=== PATIENT | male | born 1980 | race African-American/Black ===

== ENCOUNTER 2017-02-05 19:38 | Emergency (ER) | payer OTHER ==
[~2017-02-05] VITALS: Ht 175.3 cm; Wt 90.9 kg
[~2017-02-05 19:38] MED LIST: ALBU8.5H8 IH; BENZ2AMP4 IJ; HALO100A2 IM; HYDR-971 PO
[2017-02-05 20:03] VITALS: BP 115/72
[2017-02-05] MEDS ORDERED: ACETAMINOPHEN 325 MG TABLET PO ONE (20:15)
[2017-02-05] MEDS ORDERED: CEPHALEXIN 500 MG CAPSULE PO ONE (20:15)
[2017-02-05] MEDS ORDERED: CEPH-264 PO (20:20)
[2017-02-05] MEDS ORDERED: DIPH25CA58 PO (20:20)
[2017-02-05] MEDS ORDERED: NAPR500T PO (20:20)
--- NOTE | 2017-02-05 20:20 | PHYS DOC ---
Past History Past Medical History: Anxiety, Depression Past Surgical History: Other Additional Past Surgical Histo: dental extraction 3 weeks ago Smoking: Cigarettes Alcohol Use: None Drug Use: None Adult General Chief Complaint Chief Complaint: INSECT BITE HPI HPI He is a pleasant otherwise healthy 36-year-old male who while at home was stung by some insect on the right cheek. Since that time has had localized swelling increased redness with tenderness to palpation over the wound area. He denies any numbness and tingling, denies any fevers or chills, denies any facial anesthesia, vision changes, ear pain, or problems swallowing or speaking. The skin is becoming warm and increasingly red and swollen. Denies any prior infections. The swelling is on the opposite side of where his dental extraction done 3 weeks ago. He denies any self-inflicted trauma or injury from someone at home. Review of Systems Review of Systems Constitutional: Denies fever or chills [] Eyes: Denies change in visual acuity, redness, or eye pain [] HENT: Denies nasal congestion or sore throat [] Respiratory: Denies cough or shortness of breath [] Cardiovascular: No additional information not addressed in HPI [] GI: Denies abdominal pain, nausea, vomiting, bloody stools or diarrhea [] : Denies dysuria or hematuria [] Musculoskeletal: Denies back pain or joint pain [] Integument: Planes of localized swelling to the face without rash Neurologic: Denies headache, focal weakness or sensory changes [] Endocrine: Denies polyuria or polydipsia [] Current Medications Current Medications Current Medications Medications (Trade) Dose Ordered Sig/[facility] Start Time Stop Time Status Last Admin Dose Admin Acetaminophen (Tylenol) 650 mg 1X ONCE 02/05/17 20:15 02/05/17 20:16 UNV Cephalexin HCl (Keflex) 500 mg 1X ONCE 02/05/17 20:15 02/05/17 20:16 UNV Allergies Allergies Allergies Coded Allergies Type Severity Reaction Last Updated Verified ciprofloxacin Allergy Intermediate 01/26/16 Yes Physical Exam Physical Exam Constitutional: Well developed, well nourished, no acute distress, non-toxic appearance. [] HENT: Normocephalic, atraumatic, bilateral external ears normal, oropharynx moist, localized swelling to the right cheek inferior to the zygoma demarcated by area of erythema with soft tissue swelling measuring 3 cm x 4 cm. No obvious puncture wound or foreign body located in the cheeks Eyes: PERRLA, EOMI, conjunctiva normal, no discharge. [] Neck: Normal range of motion, no tenderness, supple, no stridor. [] Cardiovascular:Heart rate regular rhythm, no murmur [] Lungs & Thorax: Bilateral breath sounds clear to auscultation [] Skin: Warm, dry, Mall area of erythema on the cheek wall with no vesicles or rash internal buccal mucosa is within normal limits no obvious dental involvement Neurologic: Alert and oriented X 3, normal motor function, normal sensory function, no focal deficits noted. [] Normal Speech nO obvious signs of facial weakness there is obvious signs of facial asymmetry secondary to soft tissue swelling Psychologic: Affect normal, judgement normal, mood normal. [] EKG EKG [] Radiology/Procedures Radiology/Procedures [] Course & Med Decision Making Course & Med Decision Making Pertinent Labs and Imaging studies reviewed. (See chart for details) reviewed nursing notes and vital signs and patient's complaint upon arrival I believe that this is a local envenomation from stinging or biting insect. No foreign bodies noted in the soft tissue. Skin is warm consistent with likely localized history and reaction but given 24 hour window of localized swelling and increased redness we'll prophylactically treat with antibiotics to increase likelihood of resolution of symptoms. Impression: Localized histamine response from insect envenomation possibly early cellulitis Disposition: Follow with PCP in 24-48 hours for localized wound check given precautions to return for increasing swelling fevers greater than 102.2 despite treatment pain in his eye or increased, vision trouble swallowing change in voice. [] Dragon Disclaimer Dragon Disclaimer This chart was dictated in whole or in part using Voice Recognition software in a busy, high-work load, and often noisy Emergency Department environment. It may contain unintended and wholly unrecognized errors or omissions. Departure Departure: Impression: Primary Impression: Facial cellulitis Additional Impression: Insect bite Disposition: 01 HOME, SELF-CARE Condition: IMPROVED Referrals: [facility] (PCP) Patient Instructions: Cellulitis, Insect Bite Additional Instructions: This return for any new or increasing symptoms, redness, swelling, fever greater than 102.2 despite treatment or if you have any questions or concerns. I would advise follow-up with her primary care doctor in 24-48 hours if symptoms are not improved despite antibiotic treatment. Please keep and take your entire course of antibiotics to prevent any secondary infection. Scripts Diphenhydramine Hcl (BENADRYL) 25 Mg Capsule 25 MG PO QID for 7 Days, #28 CAP Prov: JOHNNY MCNAMARA MD 02/05/17 Cephalexin (KEFLEX) 500 Mg Capsule 500 MG PO QID for 10 Days, #40 CAP Prov: JOHNNY MCNAMARA MD 02/05/17 Naproxen (NAPROSYN) 500 Mg Tablet 1 TAB PO BID, #20 TAB 1 Refill Prov: JOHNNY MCNAMARA MD 02/05/17 Problem Qualifiers JOHNNY MCNAMARA MD February 05, 2017 20:20
== END 2017-02-05 20:27 | disposition home or self-care (01) ==
LOC: ER 19:38
DX: L03.211 Cellulitis of face (principal); S00.86XA Insect bite (nonvenomous) of other part of head, initial encounter; F17.210 Nicotine dependence, cigarettes, uncomplicated; Z88.1 Allergy status to other antibiotic agents; W57.XXXA Bitten or stung by nonvenomous insect and other nonvenomous arthropods, initial encounter; Y93.89 Activity, other specified; Y99.8 Other external cause status; Y92.89 Other specified places as the place of occurrence of the external cause
CPT/HCPCS: 99283

== ENCOUNTER 2017-03-02 04:39 | Emergency (ER) | payer OTHER ==
[~2017-03-02 04:39] MED LIST changes: +CEPH-264 PO; +DIPH25CA58 PO; +NAPR500T PO
[2017-03-02] MEDS: ONDANSETRON PF 4 MG/2 ML VIAL. IV ONE (05:03)
[2017-03-02] MEDS: fentaNYL PF 100 MCG/2 ML VIAL IV ONE (05:03)
[2017-03-02 05:12] LABS: BASO # 0.1 x10^3/uL (0.0-0.2); BASO % 1 % (0-3); EOS # 0.2 x10^3/uL (0.0-0.7); EOS % 3 % (0-3); HEMATOCRIT 41.2 % (39.0-53.0); HEMOGLOBIN 13.5 g/dL (13.0-17.5); LYMPH # 2.6 x10^3/uL (1.0-4.8); LYMPH % 42 % (24-48); MEAN CORPUSCULAR HEMOGLOBIN 28 pg (25-35); MEAN CORPUSCULAR HGB CONC 33 g/dL (31-37); MEAN CORPUSCULAR VOLUME 85 fL (79-100); MONO # 0.7 x10^3/uL (0.0-1.1); MONO % 11 % (0-9); NEUT # 2.6 x10^3uL (1.8-7.7); NEUT % 43 % (31-73); PLATELET COUNT 178 x10^3/uL (140-400); RED BLOOD COUNT 4.83 x10^6/uL (4.30-5.70); WHITE BLOOD COUNT 6.2 x10^3/uL (4.0-11.0)
[2017-03-02 05:22] LABS: CALCIUM 8.4 mg/dL (8.5-10.1); CREATININE 1.3 mg/dL (0.7-1.3); GFR 74.8; POTASSIUM 3.4 mmol/L (3.5-5.1)
[2017-03-02] MEDS ORDERED: KETOROLAC 30 MG/ML VIAL. IV ONE (05:30)
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
[2017-03-02] MEDS: LORazepam 2 MG/ML VIAL IV ONE (05:34)
[2017-03-02 05:46] LABS: BARBITURATES NEG (NEG); BENZODIAZEPINES NEG (NEG); CANNABINOIDS POS (NEG); COCAINE NEG (NEG); METHADONE NEG (NEG); OPIATES NEG (NEG); PHENCYCLIDINE NEG (NEG)
--- NOTE | 2017-03-02 05:47 | EKG ---
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
[2017-03-02 05:51] LABS: AMPHETAMINE/METHAMPHETAMINE NEG (NEG)
--- NOTE | 2017-03-02 07:11 | ACF ---
Admission Criteria Forms CHEST PAIN Clinical Indications for Admission to Inpatient Care (Place 'X' for any and all applicable criteria): Admission is indicated for chest pain and ANY ONE of the following(1)(2)(3)(4)(5 ): [ ]I. Angina with acute coronary syndrome (Also use Myocardial Infarction or Angina guideline) [ ]II. Hemodynamic instability [ ]III. Angina needing acute intervention as indicated by ALL of the following( 11)(12): [ ]a) Unstable angina is present as indicated by angina that is ANY ONE of the following: [ ]i) New onset [ ]ii) Nocturnal [ ]iii) Prolonged at rest [ ]iv) Progressive [ ]b) Angina warrants acute intervention as indicated by ANY ONE of the following: [ ]i) Recurrent angina (e.g, not responding as previously to treatment) [ ]ii) Angina at rest or with low-level activities despite initial medical therapy [ ]iii) New or presumably new ST-segment depression on ECG [ ]iv) Signs or symptoms of heart failure (eg, dyspnea, pulmonary edema) [ ]v) New or worsening mitral regurgitation [ ]vi) Hemodynamic instability [ ]vii) Dangerous arrhythmia (eg, sustained ventricular tachycardia) [ ]viii) History of percutaneous coronary intervention within 6 months [ ]ix) History of coronary artery bypass graft surgery [ ]x) AURA risk score of 2 or greater[A] [ ]xi) History of Diabetes(14) [ ]xii) High-risk cardiac ischemia findings on noninvasive testing (e.g, echocardiogram, treadmill testing, nuclear scan) [ ]xiii) Chronic renal insufficiency (ie, estimated GFR less than 60 mL/min/1.732m) [ ]xiv) Left ventricular ejection fraction less than 40% [ ]IV. Evidence of [place] (eg, cardiac biomarkers positive, ST-segment elevation on ECG) also use Myocardial Infarction Criteria Form. [ ]V. Pulmonary edema [ ]. Respiratory distress [ ]VII. Chest pain indicative of serious diagnosis other than coronary artery disease (eg, aortic dissection) [ ]VIII. Contraindications and/or Inappropriate clinical situations for Observational Care in patients with Chest Pain, when ANY ONE of the following is required: [ ]a) Patient with risk factor for pulmonary embolism, acute coronary syndrome and myocardial infarction (18) [ ]b) Patient with Pulmonary embolism require an average LOS of 4.3 days, therefore emergency department observation management is inappropriate 18,23 [ ]c) Painful condition/s in the elderly, have the highest rate of recidivism after emergency department observation management (10.8%) 20,21,22 [ ]d) Elevated cardiac biomarker requires intensive and exhaustive care (19) [ ]IX. General contraindications and/or Inappropriate clinical situations for Observational Care in patients with Chest Pain, when ANY ONE of the following is required: [ ]a) Prediction of prolongation of LOS based on ANY ONE of the following may be considered as a contraindication for observational care 2, 3, 4, 5, 6, 7, 8, 9, 10, 11 [ ]i) Age > 65 yrs. [ ]ii) Patient arriving by ambulance [ ]iii) Patient with high acuity [ ]iv) Patient requiring vital sign monitoring [ ]v) Patient on IV medication [ ]b) Systolic blood pressures 180mmHg 3,12 [ ]c) Patient with altered mental status including delirium and other alteration of consciousness, (3) [ ]d) Patient whose discharge disposition will be to a usp home or rehabilitation home should not be managed in Emergency Department Observation Unit. CMS rule requires 3 days hospital stay before such placement. 3,13 [ ]e) Patient with failure to thrive due to broad array of etiologies 3,16,17 [ ]f) Inability to ambulate 3,14 Extended stay beyond goal length of stay may be needed for (1)(28): [ ]a) Specific condition diagnosed after evaluation (eg, pulmonary embolism, aortic dissection) [ ]b) Unstable angina [ ]c) Continued suspicion of acute coronary syndrome with inability to complete needed cardiac evaluation (eg, patient clinically unable to undergo stress testing) [ ]d) Myocardial infarction (Contents from ANGINA and CHEST PAIN clinical indications for admission to inpatient care have been integrated in this form) The original [employer] content created by [employer] has been revised. The portions of the content which have been revised are identified through the use of italic text or in bold, and [employer] has neither reviewed nor approved the modified material. All other unmodified content is copyright [employer]. Please see references footnoted in the original [employer] edition 2016 VANGIE LEVINE Mar 02, 2017 07:11
--- NOTE | 2017-03-02 07:16 | RAD ---
Portable chest, 03/02/2017: History: Chest pain Comparison is made to a study from 08/13/2016. The heart size and pulmonary vascularity are normal. No pulmonary infiltrates are seen. There is no evidence of pleural fluid. IMPRESSION: No acute cardiopulmonary abnormality is detected.
--- NOTE | 2017-03-02 07:17 | RAD ---
Right shoulder, 2 views, 03/02/2017: History: Shoulder and chest pain No fracture or dislocation is identified. The periarticular soft tissues are unremarkable. IMPRESSION: No acute right shoulder abnormality is detected.
[2017-03-02 08:15] VITALS: BP 116/63
== END 2017-03-02 08:28 | disposition home or self-care (01) ==
LOC: ER 04:39
DX: R07.89 Other chest pain (principal); M25.511 Pain in right shoulder; F41.1 Generalized anxiety disorder; J45.909 Unspecified asthma, uncomplicated; F17.210 Nicotine dependence, cigarettes, uncomplicated; Z88.1 Allergy status to other antibiotic agents
CPT/HCPCS: 36415; 71010; 73030; 80048; 80305; 80320; 82550; 84484; 85027; 93005; 96374; 96375; 99285; J2060; J2405; J3010; G0480; G0481

== ENCOUNTER 2017-04-16 19:24 | Emergency (ER) | payer OTHER ==
[~2017-04-16] VITALS: Ht 175.3 cm; Wt 90.9 kg
[2017-04-16] MEDS ORDERED: diphenhydrAMINE HCL 25 MG CAPSULE PO ONE (19:45)
--- NOTE | 2017-04-16 19:51 | PHYS DOC ---
Past History Past Medical History: Anxiety, Asthma, Bipolar, Other Past Surgical History: Other Additional Past Surgical Histo: dental extraction 3 weeks ago Smoking: Cigarettes Alcohol Use: None Drug Use: Marijuana Adult General Chief Complaint Chief Complaint: INSECT BITE HPI HPI Patient is a 36 year old MALE who presents with complaint of spider bite. He states he was bitten "just 10 min before I got here." He was bitten to both of his thumbs. He took a picture of the spider to show me. No nausea or vomiting; no swelling of the area. No visual change or headache. No abdominal cramping. No rash or difficulty breathing. Review of Systems Review of Systems Respiratory: Denies cough or shortness of breath GI: Denies abdominal pain, nausea, vomiting, bloody stools or diarrhea Musculoskeletal: Denies back pain or joint pain Integument: Denies rash or skin lesions Neurologic: Denies headache, focal weakness or sensory changes Allergies Allergies Allergies Coded Allergies Type Severity Reaction Last Updated Verified ciprofloxacin Allergy Intermediate 01/26/16 Yes Physical Exam Physical Exam Constitutional: Well developed, well nourished, no acute distress, non-toxic appearance. Skin: Warm, dry, no erythema, no rash. Extremities: No tenderness, no cyanosis, no clubbing, ROM intact, no edema. NO WOUNDS VISUALIZED ON EITHER THUMBS. No swelling; NVI distally. Neurologic: Alert and oriented X 3, normal motor function, normal sensory function, no focal deficits noted. Course & Med Decision Making Course & Med Decision Making No evidence of systemic findings. I cannot even visualize the bite wounds on the thumbs. He did request a not for work tomorrow. Patient given benadryl here. Dragon Disclaimer Dragon Disclaimer This chart was dictated in whole or in part using Voice Recognition software in a busy, high-work load, and often noisy Emergency Department environment. It may contain unintended and wholly unrecognized errors or omissions. Departure Departure: Impression: Primary Impression: Spider bite Disposition: 01 HOME, SELF-CARE Condition: GOOD Referrals: [facility] (PCP) Patient Instructions: Spider Bite Additional Instructions: Take benadryl every 4-6 hours for the next 24 hours. MARITZA ZACARIAS MD Apr 16, 2017 19:51
[2017-04-16 19:57] VITALS: BP 122/78
== END 2017-04-16 19:56 | disposition home or self-care (01) ==
LOC: ER 19:24
DX: T63.301A Toxic effect of unspecified spider venom, accidental (unintentional), initial encounter (principal); F41.9 Anxiety disorder, unspecified; F17.210 Nicotine dependence, cigarettes, uncomplicated; F12.10 Cannabis abuse, uncomplicated; Z88.1 Allergy status to other antibiotic agents; Y92.89 Other specified places as the place of occurrence of the external cause
CPT/HCPCS: 99282; Q0163

== ENCOUNTER 2017-05-05 17:56 | Emergency (ER) | payer OTHER ==
[~2017-05-05] VITALS: Ht 175.3 cm; Wt 82.1 kg
[2017-05-05 18:11] VITALS: BP 126/84
[2017-05-05] MEDS ORDERED: HYDROcodone/APAP 10/325 1 TAB TABLET ONE (18:32)
[2017-05-05] MEDS ORDERED: ONDANSETRON ODT 4 MG TAB.RAPDIS ONE (18:33)
[2017-05-05] MEDS ORDERED: ONDANSETRON ODT 4 MG TAB.RAPDIS PO ONE (18:45)
[2017-05-05] MEDS ORDERED: HYDROcodone/APAP 10/325 1 TAB TABLET PO ONE (18:45)
[2017-05-05 19:05] LABS: BACTERIA,URINE 0 /HPF (0-FEW); BILIRUBIN,URINE NEG (NEG); CLARITY,URINE CLEAR; COLOR,URINE YELLOW; GLUCOSE,URINE NEG (NEG); NITRITE,URINE NEG (NEG); RBC,URINE 0 /HPF (0-2); SQUAMOUS EPITHELIAL CELL,UR OCC /LPF; UROBILINOGEN,URINE 1 mg/dL (0.2 mg/dL); WBC,URINE OCC /HPF (0-4)
--- NOTE | 2017-05-05 19:18 | PHYS DOC ---
General Chief Complaint: BACK PAIN OR INJURY Stated Complaint: FALL Time Seen by MD: 18:08 Source: patient Exam Limitations: no limitations Problems: History of Present Illness Initial Comments Pt is 36/M to ED c/o fall injury. 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 He says he was standing approximately 6 feet off the ground when the support under his right foot gave way. He says he fell backwards landing "like a taco" wedged in between the fence and a akins. He denies head trauma/LOC/BUSTOS/neck pain. No cuts/ bruises/abrasions despite reportedly falling into a akins. Pt only complaint is right flank/rib pain and complaints of skin tingling or numbness overlying his right thorax. Denies back pain, focal weakness or neurodeficit, bowel/bladder sx, saddle anesthesia. Pt says he took OTC motrin and that he only came to ED because SO wanted him checked out. No new/progressive sx since the fall, no cp/sob/cough/n/v. ED VS normal Occurred: this afternoon Severity: mild Injuries/Pain Location: back Context: other Loss of Consciousness: no loss of consciousness Modifying Factors: worse with jarring, worse with movement, improves with rest Associated Symptoms: other Allergies: Coded Allergies: ciprofloxacin (Verified Allergy, Intermediate, 01/26/16) Hives Past Medical History Medical History: other (asthma, bipolar disorder, anxiety) Surgical History: noncontributory Social History Smoker: cigarettes Alcohol: none Drugs: marijuana Review of Systems Constitutional: denies chills, denies diaphoresis, denies fever, denies malaise Eyes: denies blurred vision, denies decreased acuity, denies inflammation, denies pain, denies photophobia Ears, Nose, Mouth, Throat: denies ear pain, denies ear discharge, denies nose discharge, denies epistaxis, denies mouth pain, denies mouth swelling, denies throat pain Respiratory: see HPI, denies cough, denies shortness of breath, denies wheezing Cardiovascular: denies chest pain, denies palpitations, denies syncope Gastrointestinal: denies diarrhea, denies nausea, denies vomiting Musculoskeletal: see HPI, denies back pain, denies joint pain, denies joint swelling, denies neck pain Psychiatric/Neurological: see HPI, denies headache Physical Exam General Appearance: WD/WN, no apparent distress Head: no evidence of injury (NCAT, neg marinelli/raccoon eyes, no face/scalp TTP/ swell/ecchy or other s/s trauma) Eyes: bilateral eye normal inspection, bilateral eye PERRL, bilateral eye EOMI Ears, Nose, Mouth, Throat: hearing grossly normal, no evidence of ENT injury, no dental injury (no ear/nose discharge no fluid behind TMs b/l) Neck: non-tender, full range of motion Cardiovascular/Respiratory: normal peripheral pulses, normal breath sounds, no respiratory distress Gastrointestinal: non tender, soft Back: no CVA tenderness, no vertebral tenderness Extremities: normal range of motion, non-tender 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 I discussed tx plan, pt expressed agreement/ understanding. Advised to stop smoking. No evidence of head injury noted. Departure Time of Disposition: 19:15 Disposition: 01 HOME, SELF-CARE Diagnosis: Fall, Thoracolumbar strain, head injury Condition: GOOD Patient Instructions: Concussion and Brain Injury, Mpac-vs-Ehxs, Mid-Back Strain with Rehab-SportsMed Additional Instructions: No exercise or strenuous activity until cleared by doctor. RICE, see handout. OTC tylenol as needed. Rx: norco 5mg #10, flexeril Follow up with a doctor in 2-3 days for recheck and further activity restriction modifications. Stop smoking, seek medical assistance if necessary. Return to ED with new or changing symptoms. MAGNOLIA MAN DO May 05, 2017 19:18
[2017-05-05] MEDS ORDERED: HYDR-971 PO (19:20)
[2017-05-05] MEDS ORDERED: CYCL-331 PO (19:20)
--- NOTE | 2017-05-06 08:27 | RAD ---
CHEST PA LATERAL History:Fall, right-sided tenderness Comparison: 03/02/2017 Findings:3 views of the chest are submitted. There is no infiltrate, pleural fluid, pneumothorax. Heart size is within normal limits. No displaced right rib fracture is identified by this exam. Impression: 1.No acute abnormality is identified.
== END 2017-05-05 19:33 | disposition home or self-care (01) ==
LOC: ER 17:56
DX: S29.012A Strain of muscle and tendon of back wall of thorax, initial encounter (principal); S09.90XA Unspecified injury of head, initial encounter; J45.909 Unspecified asthma, uncomplicated; F17.210 Nicotine dependence, cigarettes, uncomplicated; Z88.1 Allergy status to other antibiotic agents; W17.89XA Other fall from one level to another, initial encounter; Y93.H2 Activity, gardening and landscaping; Y99.8 Other external cause status; Y92.89 Other specified places as the place of occurrence of the external cause
CPT/HCPCS: 71020; 81001; 99285; Q0162

== ENCOUNTER 2017-05-11 15:49 | Emergency (ER) | payer OTHER ==
[~2017-05-11] VITALS: Ht 175.3 cm; Wt 81.6 kg
[~2017-05-11 15:49] MED LIST changes: +CYCL-331 PO
[2017-05-11 16:28] LABS: BASO # 0.1 x10^3/uL (0.0-0.2); BASO % 1 % (0-3); EOS # 0.1 x10^3/uL (0.0-0.7); EOS % 2 % (0-3); HEMATOCRIT 41.7 % (39.0-53.0); HEMOGLOBIN 13.9 g/dL (13.0-17.5); LYMPH # 1.3 x10^3/uL (1.0-4.8); LYMPH % 26 % (24-48); MEAN CORPUSCULAR HEMOGLOBIN 28 pg (25-35); MEAN CORPUSCULAR HGB CONC 33 g/dL (31-37); MEAN CORPUSCULAR VOLUME 84 fL (79-100); MONO # 0.6 x10^3/uL (0.0-1.1); MONO % 12 % (0-9); NEUT % 59 % (31-73); PLATELET COUNT 162 x10^3/uL (140-400); RED BLOOD COUNT 4.95 x10^6/uL (4.30-5.70); RED CELL DISTRIBUTION WIDTH 13.3 % (11.5-14.5); WHITE BLOOD COUNT 5.2 x10^3/uL (4.0-11.0)
[2017-05-11 16:40] LABS: ACETAMIN < 2.0 mcg/mL (10-30); ALBUMIN 3.9 g/dL (3.4-5.0); ALBUMIN/GLOBULIN RATIO 1.1 (1.0-1.7); CALCIUM 9.2 mg/dL (8.5-10.1); CREATININE 1.5 mg/dL (0.7-1.3); ETHANOL < 10 mg/dL (0-10); GFR 63.4; POTASSIUM 3.5 mmol/L (3.5-5.1); TOTAL BILIRUBIN 0.4 mg/dL (0.2-1.0); TOTAL PROTEIN 7.3 g/dL (6.4-8.2)
[2017-05-11 17:35] LABS: AMPHETAMINE/METHAMPHETAMINE NEG (NEG); BARBITURATES NEG (NEG); BENZODIAZEPINES NEG (NEG); CANNABINOIDS POS (NEG); COCAINE NEG (NEG); METHADONE NEG (NEG); OPIATES POS (NEG); PHENCYCLIDINE NEG (NEG)
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
[2017-05-11 22:45] VITALS: BP 122/84
--- NOTE | 2017-05-12 07:01 | EKG ---
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
== END 2017-05-11 22:46 ==
LOC: ER 15:49 → EEVIPCON 15:49 → ER 22:46
DX: F39 Unspecified mood [affective] disorder (principal); T14.91 Suicide attempt; F17.210 Nicotine dependence, cigarettes, uncomplicated; F12.10 Cannabis abuse, uncomplicated; Z88.1 Allergy status to other antibiotic agents; X71.3XXA Intentional self-harm by drowning and submersion in natural water, initial encounter; Y93.89 Activity, other specified; Y99.8 Other external cause status; Y92.89 Other specified places as the place of occurrence of the external cause
CPT/HCPCS: 36415; 80053; 80307; 85025; 93005; 99285; G0480; G0479

== ENCOUNTER 2017-06-05 13:18 | Observation (INO) | payer OTHER ==
[~2017-06-05] VITALS: Ht 175.3 cm; Wt 83.1 kg
--- NOTE | 2017-06-05 13:19 | PHYS DOC ---
Past History Past Medical History: No Pertinent History Past Surgical History: No Surgical History Additional Past Surgical Histo: dental extraction 3 weeks ago Smoking: Cigarettes Alcohol Use: None Drug Use: Marijuana Adult General Chief Complaint Chief Complaint: left lower chest pain HPI HPI Patient is a 36 year old male who presents with left lower chest/left upper abdominal pain. She started last night became severe and made him cry. He states sometimes burping makes his pain better. He denies any shortness of breath, nausea vomiting. He denies anything making the pain worse. He states it does get worse at times but has not gone away since last night. He states his been 2 days since his last bowel movement which is not normal for him he usually has a BM every day. He denies any past surgical history and his abdomen. He does smoke marijuana occasionally. He denies any illicit drug use. Review of Systems Review of Systems Constitutional: Denies fever or chills [] Eyes: Denies change in visual acuity, redness, or eye pain [] HENT: Denies nasal congestion or sore throat [] Respiratory: Denies cough or shortness of breath [] Cardiovascular: No additional information not addressed in HPI [] GI: Denies abdominal pain, nausea, vomiting, bloody stools or diarrhea [] : Denies dysuria or hematuria [] Musculoskeletal: Denies back pain or joint pain [] Integument: Denies rash or skin lesions [] Neurologic: Denies headache, focal weakness or sensory changes [] Endocrine: Denies polyuria or polydipsia [] Allergies Allergies Allergies Coded Allergies Type Severity Reaction Last Updated Verified ciprofloxacin Allergy Intermediate 01/26/16 Yes Physical Exam Physical Exam Constitutional: Well developed, well nourished, no acute distress, non-toxic appearance. [] HENT: Normocephalic, atraumatic, bilateral external ears normal, oropharynx moist, no oral exudates, nose normal. [] Eyes: PERRLA, EOMI, conjunctiva normal, no discharge. [] Neck: Normal range of motion, no tenderness, supple, no stridor. [] Cardiovascular:Heart rate regular rhythm, no murmur [] Lungs & Thorax: Bilateral breath sounds clear to auscultation, tender palpation of the left lower chest wall. Abdomen: Bowel sounds hyperactive, soft, tender palpation in the left upper quadrant without any rebound or guarding, no masses, no pulsatile masses. [] Skin: Warm, dry, no erythema, no rash. [] Back: No tenderness, no CVA tenderness. [] Extremities: No tenderness, no cyanosis, no clubbing, ROM intact, no edema. [] Neurologic: Alert and oriented X 3, normal motor function, normal sensory function, no focal deficits noted. [] Psychologic: Affect normal, judgement normal, mood normal. [] EKG EKG EKG shows sinus rhythm with rate of [address] elevations, early re- pole noted in V2 V3, LVH noted, T-wave inversions in lead 3,, QTC 420s all seconds, normal axis, as interpreted by me. EKG similar to one performed on May 11, 2017 except for new T-wave inversions in aVF Radiology/Procedures Radiology/Procedures [address] [address] IMAGING REPORT Signed PATIENT: NASIR DOS SANTOS ACCOUNT: [id number] : 1980 LOCATION: ER AGE: 36 SEX: M EXAM STATUS: REG ER ORD. PHYSICIAN: THONY DEVINE MD REASON: abd pain PROCEDURE: ACUTE ABDOMEN SERIES EXAM: Two view abdomen with one view chest HISTORY: Abdominal pain. COMPARISON: 05/05/2017. FINDINGS: A frontal view of the chest and supine/upright views of the abdomen are obtained. There are no confluent infiltrates. There is no pneumothorax or pleural effusion. The heart is not enlarged. There is no pneumoperitoneum. There are no distended small bowel loops or significant air-fluid levels. There is gas distally. IMPRESSION: 1. No confluent infiltrates. 2. No evidence of obstruction. DICTATED AND SIGNED BY: ALEC LI MD DATE: 06/05/17 6922 CC: THONY DEVINE MD; [facility] ~ Impressions: Chest pain Tobacco abuse PTSD Course & Med Decision Making Course & Med Decision Making Pertinent Labs and Imaging studies reviewed. (See chart for details) He has new T-wave inversions in lead 3 on his EKG versus an EKG in May 11, 2017. First troponin and labs do not show any acute abnormality's. We'll admit to the hospitalist with cardiology consultation. We'll give aspirin and obtain CT scan abdomen pelvis to look for additional pathology. He is agreeable plans in stable condition this time. I did speak with Lakia with cardiology regarding consultation. Dragon Disclaimer Dragon Disclaimer This chart was dictated in whole or in part using Voice Recognition software in a busy, high-work load, and often noisy Emergency Department environment. It may contain unintended and wholly unrecognized errors or omissions. Departure Departure: Impression: Primary Impression: Chest pain Disposition: ADMITTED INPATIENT Admitting Physician: Regina Reddy Condition: STABLE Referrals: [facility] (PCP) Problem Qualifiers Primary Impression: Chest pain Chest pain type: unspecified Qualified Codes: R07.9 - Chest pain, unspecified THONY DEVINE MD Jun 05, 2017 13:19
[2017-06-05] MEDS ORDERED: IV NORMAL SALINE 1,000ML 1,000 ML IV SCH (13:45)
[2017-06-05 14:24] LABS: BASO # 0.1 x10^3/uL (0.0-0.2); BASO % 1 % (0-3); EOS # 0.1 x10^3/uL (0.0-0.7); EOS % 3 % (0-3); HEMATOCRIT 42.2 % (39.0-53.0); HEMOGLOBIN 14.1 g/dL (13.0-17.5); LYMPH # 1.3 x10^3/uL (1.0-4.8); LYMPH % 29 % (24-48); MEAN CORPUSCULAR HEMOGLOBIN 28 pg (25-35); MEAN CORPUSCULAR HGB CONC 34 g/dL (31-37); MEAN CORPUSCULAR VOLUME 84 fL (79-100); MONO # 0.5 x10^3/uL (0.0-1.1); MONO % 11 % (0-9); NEUT # 2.6 x10^3uL (1.8-7.7); NEUT % 57 % (31-73); PLATELET COUNT 206 x10^3/uL (140-400); RED BLOOD COUNT 5.02 x10^6/uL (4.30-5.70); RED CELL DISTRIBUTION WIDTH 13.7 % (11.5-14.5); WHITE BLOOD COUNT 4.5 x10^3/uL (4.0-11.0)
[2017-06-05 14:31] LABS: ALBUMIN 3.9 g/dL (3.4-5.0); ALK PHOS 93 U/L (46-116); ALT (SGPT) 19 U/L (16-63); ANION GAP 8 (6-14); AST (SGOT) 12 U/L (15-37); BLOOD UREA NITROGEN 14 mg/dL (8-26); CALCIUM 8.9 mg/dL (8.5-10.1); CARBON DIOXIDE 27 mmol/L (21-32); CHLORIDE 107 mmol/L (98-107); CREATINE KINASE 157 U/L (39-308); CREATININE 1.1 mg/dL (0.7-1.3); DIRECT BILIRUBIN 0.1 mg/dL (0.0-0.2); GFR 90.6; GLUCOSE 131 mg/dL (70-99); LIPASE 180 U/L (73-393); MAGNESIUM 1.8 mg/dL (1.8-2.4); POTASSIUM 3.9 mmol/L (3.5-5.1); SODIUM 142 mmol/L (136-145); TOTAL BILIRUBIN 0.4 mg/dL (0.2-1.0); TOTAL PROTEIN 7.2 g/dL (6.4-8.2)
--- NOTE | 2017-06-05 14:49 | RAD ---
EXAM: Two view abdomen with one view chest HISTORY: Abdominal pain. COMPARISON: 05/05/2017. FINDINGS: A frontal view of the chest and supine/upright views of the abdomen are obtained. There are no confluent infiltrates. There is no pneumothorax or pleural effusion. The heart is not enlarged. There is no pneumoperitoneum. There are no distended small bowel loops or significant air-fluid levels. There is gas distally. IMPRESSION: 1. No confluent infiltrates. 2. No evidence of obstruction.
[2017-06-05 14:55] LABS: AMPHETAMINE/METHAMPHETAMINE NEG (NEG); BARBITURATES NEG (NEG); BENZODIAZEPINES NEG (NEG); CANNABINOIDS POS (NEG); COCAINE NEG (NEG); METHADONE NEG (NEG); OPIATES NEG (NEG); PHENCYCLIDINE NEG (NEG)
[2017-06-05 15:05] LABS: COLOR,URINE YELLOW
[2017-06-05 15:06] LABS: BACTERIA,URINE 0 /HPF (0-FEW); BILIRUBIN,URINE NEG (NEG); CLARITY,URINE CLEAR; GLUCOSE,URINE NEG (NEG); NITRITE,URINE NEG (NEG); SQUAMOUS EPITHELIAL CELL,UR MANY /LPF; UROBILINOGEN,URINE 1 mg/dL (0.2 mg/dL)
[2017-06-05] MEDS ORDERED: NITROGLYCERIN SUBLINGUAL 0.4 MG BOTTLE OF 25. SL PRN (15:15)
[2017-06-05] MEDS ORDERED: MORPHINE SULFATE 2 MG/ML DISP.SYRIN. IV PRN (15:15)
[2017-06-05] MEDS ORDERED: ONDANSETRON PF 4 MG/2 ML VIAL. IV PRN (15:15)
[2017-06-05] MEDS ORDERED: ASPIRIN 325 MG TABLET PO ONE (15:30)
[2017-06-05] MEDS ORDERED: IOHEXOL 300 MG/ML 75 ML VIAL. IV ONE (15:45)
--- NOTE | 2017-06-05 16:17 | RAD ---
EXAM: CT abdomen/pelvis with contrast. HISTORY: Left upper quadrant pain. TECHNIQUE: Computed tomography of the abdomen and pelvis was performed after the intravenous administration of 75 mL Omnipaque 300. COMPARISON: None. FINDINGS: Lung windows through the visualized portions of the bases reveal mild atelectasis. Bone windows reveal no suspicious lesions. The liver, gallbladder, spleen, pancreas, adrenal glands and kidneys are unremarkable. There are no pathologically enlarged lymph nodes. There is no obstruction. The appendix is not inflamed. No inflammatory changes are identified elsewhere. IMPRESSION: 1. No cause for acute pain is identified. *One or more of the following individualized dose reduction techniques were utilized for this examination: 1. Automated exposure control. 2. Adjustment of the mA and/or kV according to patient size. 3. Use of iterative reconstruction technique.
--- NOTE | 2017-06-05 16:52 | NUR ---
NSG NOTE; [facility] CARDIOLOGY CONSULT CALLED TO OFFICE AT [phone]. EDD ANDREWS AND DR MACK HERE TO SEE PT
[2017-06-05 16:55] VITALS: BP 143/82
--- NOTE | 2017-06-05 17:00 | NUR ---
Admission: Received report from SOULEYMANE Alfaro in ED. Patient assisted to room via michele accompanied by EMS and RN. Oriented to room. Vitals assessed and stable. Patient reviewed current symptoms and past medical history. Reviewed orders and plan of care. Patient verbalized understanding. Telemetry applied. Call light with in reach. Will continue to monitor.
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
[2017-06-05] MEDS ORDERED: FLUO10CA13 PO (18:40)
[2017-06-05] MEDS ORDERED: QUET25TA PO (18:41)
[2017-06-05] MEDS ORDERED: PRAZ1CAP2 PO (18:42)
--- NOTE | 2017-06-05 19:00 | NUR ---
Nursing/AMA: Patient walked passed nursing station and stated "im leaving." SOULEYMANE Estrella walked out with patient. Security pagedAndres responded. Patient told SOULEYMANE Estrella that he removed his IV. IV seem in patients room, catheter tip in-tact. All belongings with patient.
--- NOTE | 2017-06-05 19:05 | NUR ---
Pt walked out of the hospital and this nurse followed him. Pt seemed upset and was yelling back at this nurse. This nurse asked him if he was coming back and he states, "NO! I need to have words with my father in law!" This nurse asked if he had his IV out and he yells back, "I ripped it out!" He then placed his head phones on and he was walking down the hill. Security was notifed of pt leaving AMA. This nurse checked his room and his IV was placed in the trash.
--- NOTE | 2017-06-05 19:22 | NUR ---
Dr. Reddy notified that patient left AMA
[2017-06-05] MEDS ORDERED: FLU VACC QS2017-18 (36MOS+)/PF 0.5 ML SYRINGE. VAX IM ONE (21:00)
--- NOTE | 2017-06-06 11:27 | EKG ---
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
--- NOTE | 2017-06-07 12:51 | EKG ---
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
== END 2017-06-05 19:00 | disposition left against medical advice (07) ==
LOC: ER 13:18 → INTOOBSV 15:19 → 1 SOUTH 15:19
PROVIDERS: ADMIT Internal Medicine; ATTEND Internal Medicine
DX: R07.89 Other chest pain (principal); F17.210 Nicotine dependence, cigarettes, uncomplicated; Z82.3 Family history of stroke; Z83.3 Family history of diabetes mellitus
CPT/HCPCS: 36415; 74022; 74177; 80048; 80076; 80307; 81001; 82553; 83690; 83735; 83880; 84443; 84484; 85025; 85610; 93005; 96361; 96374; G0378; G0379; J3010; Q9967; 99285-25; G0479; J7030

== ENCOUNTER 2017-09-04 08:59 | Emergency (ER) | payer OTHER ==
[~2017-09-04] VITALS: Ht 175.3 cm; Wt 90.7 kg
[~2017-09-04 08:59] MED LIST changes: +FLUO10CA13 PO; +NAPR-683 PO; -NAPR500T PO; +PRAZ1CAP2 PO; +QUET25TA PO
[2017-09-04] MEDS ORDERED: SUCR1ORA5 PO (09:40)
[2017-09-04] MEDS ORDERED: FAMO-63 PO (09:40)
--- NOTE | 2017-09-04 09:41 | PHYS DOC ---
Past History Past Medical History: No Pertinent History Past Surgical History: No Surgical History Additional Past Surgical Histo: dental extraction 3 weeks ago Smoking: Cigarettes Alcohol Use: None Drug Use: Marijuana Adult General Chief Complaint Chief Complaint: MULTIPLE COMPLAINTS HPI HPI Patient is a 36 -year-old male who denies any significant past medical history comes in complaints of epigastric burning that runs of up in the middle of his chest and makes him gag and is similar bad taste in his mouth, these only been going on for a couple of hours. Patient denies any willian diarrhea by his has some loose stools. Several members in the family have a somewhat similar symptoms. He has a mild discomfort in the epigastric area Review of Systems Review of Systems Constitutional: Denies fever or chills [] HENT: Denies nasal congestion or sore throat [] Respiratory: Denies cough or shortness of breath [] Cardiovascular: No chest pain GI: As per the history of present illness : Denies dysuria or hematuria [] Musculoskeletal: Denies back pain or joint pain [] Integument: Denies rash or skin lesions [] Neurologic: Denies headache, focal weakness or sensory changes [] All other systems were reviewed and found to be within normal limits, except as documented in this note. Allergies Allergies Allergies Coded Allergies Type Severity Reaction Last Updated Verified ciprofloxacin Allergy Intermediate 01/26/16 Yes Physical Exam Physical Exam Constitutional: Well developed, well nourished, no acute distress, non-toxic appearance. [] HENT: Normocephalic, atraumatic, oropharynx moist, no oral exudates, nose normal. [] Eyes: EOMI, conjunctiva normal, no discharge. [] Neck: Normal range of motion, trachea midline supple, no stridor. [] Cardiovascular:Heart rate regular rhythm, no murmur, equal pulses, normal perfusion Lungs & Thorax: Bilateral breath sounds clear to auscultation, no tachypnea Abdomen: Bowel sounds normal, soft, , no masses, no pulsatile masses. Very mild tenderness in the epigastric area without guarding or rebound Skin: Warm, dry, no erythema, no rash. [] Back: No tenderness, no CVA tenderness. [] Extremities: No tenderness, , ROM intact, no edema. [] Neurologic: Alert and oriented X 3, normal motor function, no focal deficits noted. [] Psychologic: Affect normal, judgement normal, mood normal. [] Current Patient Data Vital Signs Vital Signs Date Time Temp Pulse Resp B/P (MAP) Pulse Ox O2 Delivery O2 Flow Rate FiO2 09/04/17 09:05 97.9 66 18 98 Room Air EKG EKG [] Radiology/Procedures Radiology/Procedures [] Course & Med Decision Making Course & Med Decision Making Pertinent Labs and Imaging studies reviewed. (See chart for details) [] Dragon Disclaimer Dragon Disclaimer This electronic medical record was generated, in whole or in part, using a voice recognition dictation system. Departure Departure: Impression: Primary Impression: Abdominal pain Additional Impression: Reflux gastritis Disposition: HOME, SELF-CARE Condition: STABLE Referrals: [facility] (PCP) Please follow-up with your doctor for recheck and reevaluation in one day Patient Instructions: Abdominal Pain (Nonspecific), Diet for Gastroesophageal Reflux Disease, Adult, [id number], Gastroesophageal Reflux Disease, Adult, [id number] Scripts Famotidine (PEPCID) 20 Mg Tablet 1 TAB PO BID for 7 Days, #14 TAB 0 Refills Prov: Joe AGUILAR MD 09/04/17 Sucralfate (CARAFATE) 1 Gm/10 Ml Oral.susp 10 ML PO BID, #120 ML 1 Refill Prov: Joe AGUILAR MD 09/04/17 Problem Qualifiers Joe AGUILAR MD Sep 04, 2017 09:41
[2017-09-04] MEDS ORDERED: SUCRALFATE 1 GM TABLET. PO ONE (09:45)
[2017-09-04 10:22] VITALS: BP 131/74
== END 2017-09-04 09:50 | disposition home or self-care (01) ==
LOC: ER 08:59
DX: K29.60 Other gastritis without bleeding (principal); F17.210 Nicotine dependence, cigarettes, uncomplicated; F12.10 Cannabis abuse, uncomplicated; Z88.1 Allergy status to other antibiotic agents
CPT/HCPCS: 99283; 99284

== ENCOUNTER 2017-10-10 22:33 | Emergency (ER) | payer OTHER ==
[~2017-10-10] VITALS: Ht 175.3 cm; Wt 90.9 kg
[~2017-10-10 22:33] MED LIST changes: +FAMO-63 PO; +SUCR1ORA5 PO
--- NOTE | 2017-10-11 00:05 | PHYS DOC ---
Past History Past Medical History: No Pertinent History Past Surgical History: No Surgical History Additional Past Surgical Histo: dental extraction 3 weeks ago Smoking: Cigarettes Alcohol Use: None Drug Use: Marijuana Adult General Chief Complaint Chief Complaint: FOOT INJURY PAIN HPI HPI 36-year-old male patient states he tried to prevent of a fall and landed on his left foot around 1600 today with pain in left foot without other injuries or fall. Patient denies focal neurodeficit. Review of Systems Review of Systems Constitutional: Denies fever or chills [] Eyes: Denies change in visual acuity, redness, or eye pain [] HENT: Denies nasal congestion or sore throat [] Respiratory: Denies cough or shortness of breath [] Cardiovascular: No additional information not addressed in HPI [] GI: Denies abdominal pain, nausea, vomiting, bloody stools or diarrhea [] : Denies dysuria or hematuria [] Musculoskeletal: Denies back pain, reports extremity pain[] Integument: Denies rash or skin lesions [] Neurologic: Denies headache, focal weakness or sensory changes [] Endocrine: Denies polyuria or polydipsia [] All other systems were reviewed and found to be within normal limits, except as documented in this note. Allergies Allergies Allergies Coded Allergies Type Severity Reaction Last Updated Verified ciprofloxacin Allergy Intermediate 01/26/16 Yes Physical Exam Physical Exam Constitutional: Well nourished, no acute distress, non-toxic appearance. [] HENT: Normocephalic, atraumatic, bilateral external ears normal, oropharynx moist, no oral exudates, nose normal. [] Eyes: PERRLA, EOMI, conjunctiva normal, no discharge. [] Neck: Normal range of motion, no tenderness, supple, no stridor. [] Cardiovascular:Heart rate regular rhythm, no murmur [] Lungs & Thorax: Bilateral breath sounds clear to auscultation [] Extremities: Left foot without deformity or edema or erythema, mild tenderness in the lateral side of left foot no neuro deficit Neurologic: Alert and oriented X 3, normal motor function, normal sensory function, no focal deficits noted. [] Psychologic: Affect normal, judgement normal, mood normal. [] Current Patient Data Vital Signs Vital Signs Date Time Temp Pulse Resp B/P (MAP) Pulse Ox O2 Delivery O2 Flow Rate FiO2 10/10/17 22:40 98.8 78 20 99 Room Air EKG EKG [] Radiology/Procedures Radiology/Procedures Left foot x-ray interpreted by me and did not show fracture[] Course & Med Decision Making Course & Med Decision Making Pertinent Imaging studies reviewed. (See chart for details) Evaluation of patient in ER showed 36-year-old male patient with injury to left foot without deformity. X-ray did not show fracture. Plan to apply Chay wrap and discharge patient home with instruction to apply ice on his foot and take over- the-counter ibuprofen. [] Dragon Disclaimer Dragon Disclaimer This electronic medical record was generated, in whole or in part, using a voice recognition dictation system. Departure Departure: Impression: Primary Impression: Injury of left foot Additional Impressions: Tobacco abuse Tobacco abuse counseling Disposition: 01 HOME, SELF-CARE (At 0002) Condition: STABLE Referrals: [facility] (PCP) Patient Instructions: Foot Contusion, Smoking Cessation Additional Instructions: Apply ice on the affected area Follow-up with your primary care physician in 3-5 days Return to ER if not getting better Problem Qualifiers CATHERINE DENIS MD Oct 11, 2017 00:05
[2017-10-11 00:10] VITALS: BP 126/72
--- NOTE | 2017-10-11 07:40 | RAD ---
Left foot, 3 views, 10/10/2017: History: Foot injury fifth metatarsal pain No acute fracture or dislocation is identified. Mild subcutaneous edema is noted. IMPRESSION: No acute bony abnormality is detected.
== END 2017-10-11 00:11 | disposition home or self-care (01) ==
LOC: ER 22:33
DX: S99.922A Unspecified injury of left foot, initial encounter (principal); F17.210 Nicotine dependence, cigarettes, uncomplicated; F12.10 Cannabis abuse, uncomplicated; Z88.1 Allergy status to other antibiotic agents; W19.XXXA Unspecified fall, initial encounter; Y93.89 Activity, other specified; Y99.8 Other external cause status; Y92.89 Other specified places as the place of occurrence of the external cause
CPT/HCPCS: 73630; 99284

== ENCOUNTER 2017-10-22 19:41 | Emergency (ER) | payer OTHER | END 2017-10-22 20:15 | disposition left against medical advice (07) | LOC: ER 19:41 | DX: K08.89 Other specified disorders of teeth and supporting structures (principal); Z53.21 Procedure and treatment not carried out due to patient leaving prior to being seen by health care provider ==

== ENCOUNTER 2017-12-16 18:09 | Emergency (ER) | payer OTHER ==
[~2017-12-16] VITALS: Ht 175.3 cm; Wt 90.9 kg
[2017-12-16] MEDS ORDERED: LIDOCAINE (700MG/PATCH) PATCH. TD ONE (18:30)
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
[2017-12-16] MEDS ORDERED: Lidoderm 5% patch TOP (19:00)
[2017-12-16] MEDS ORDERED: IBUP600T16 PO (19:00)
--- NOTE | 2017-12-16 19:05 | EKG ---
[address] [address] Test Date: 2017-12-16 Test Time: 18:49:11 Pat Name: NASIR DOS SANTOS Department: Room: Gender: M Clinic Charge Nurse: PETERSON : 1980 Requested By: NAVEEN OJEDA Order Number: [id number] Reading MD: Keith Yuen MD Measurements Intervals [place] Rate: 67 P: 56 PA: 144 QRS: 3 QRSD: 98 T: 13 QT: 400 QTc: 426 Interpretive Statements SINUS RHYTHM NON-SPECIFIC ST/T CHANGES Electronically Signed On 12-19-2017 13:09:34 CDT by Keith Yuen MD
[2017-12-16 19:40] VITALS: BP 119/81
--- NOTE | 2017-12-17 08:55 | RAD ---
3 view right rib detail series and PA view chest x-ray Clinical indications: Right-sided chest pain and rib pain. Comparison: Chest x-ray dated June 05, 2017. Findings: No acute right rib cage fracture is evident. No acute lung infiltrate or pleural effusion or pulmonary edema or pneumothorax is seen. The heart size and pulmonary vasculature and mediastinum and both lila are unremarkable. IMPRESSION: No acute right rib fracture.
== END 2017-12-16 19:41 | disposition home or self-care (01) ==
LOC: ER 18:09
DX: M94.0 Chondrocostal junction syndrome [Tietze] (principal); F17.210 Nicotine dependence, cigarettes, uncomplicated; F12.10 Cannabis abuse, uncomplicated
CPT/HCPCS: 71101; 93005; 99284

== ENCOUNTER 2018-04-04 20:10 | Emergency (ER) | payer OTHER ==
[~2018-04-04] VITALS: Ht 175.3 cm; Wt 89.8 kg
[~2018-04-04 20:10] MED LIST changes: +IBUP600T16 PO; +Lidoderm 5% patch TOP
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
[2018-04-04] MEDS ORDERED: ACETAMINOPHEN 325 MG TABLET PO ONE (21:15)
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
[2018-04-04 23:00] VITALS: BP 116/81
[2018-04-04] MEDS ORDERED: NEOMY/BACITR/POLYMYXIN OINT PACKET. TP ONE (23:00)
== END 2018-04-04 23:15 | disposition home or self-care (01) ==
LOC: ER 20:10
DX: S60.211A Contusion of right wrist, initial encounter (principal); R42 Dizziness and giddiness; F41.9 Anxiety disorder, unspecified; J45.909 Unspecified asthma, uncomplicated; F17.210 Nicotine dependence, cigarettes, uncomplicated; Y08.89XA Assault by other specified means, initial encounter; Y93.89 Activity, other specified; Y99.8 Other external cause status; Y92.89 Other specified places as the place of occurrence of the external cause
CPT/HCPCS: 70450; 72125; 73110; 99284-25

== ENCOUNTER 2018-04-12 19:13 | Emergency (ER) | payer OTHER ==
[~2018-04-12] VITALS: Ht 175.3 cm; Wt 90.9 kg
[2018-04-12 19:25] VITALS: BP 140/92
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
== END 2018-04-12 20:16 | disposition home or self-care (01) ==
LOC: ER 19:13
DX: S61.502A Unspecified open wound of left wrist, initial encounter (principal); J45.909 Unspecified asthma, uncomplicated; F41.9 Anxiety disorder, unspecified; F17.210 Nicotine dependence, cigarettes, uncomplicated; Y08.89XA Assault by other specified means, initial encounter; Y93.89 Activity, other specified; Y92.89 Other specified places as the place of occurrence of the external cause; Y99.8 Other external cause status
CPT/HCPCS: 99281

== ENCOUNTER 2018-05-10 15:38 | Emergency (ER) | payer OTHER ==
[~2018-05-10] VITALS: Ht 175.3 cm; Wt 93.0 kg
[2018-05-10 15:53] VITALS: BP 146/72
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
== END 2018-05-10 16:45 | disposition home or self-care (01) ==
LOC: ER 15:38
DX: S60.221A Contusion of right hand, initial encounter (principal); F41.9 Anxiety disorder, unspecified; J45.909 Unspecified asthma, uncomplicated; F17.210 Nicotine dependence, cigarettes, uncomplicated; Y04.0XXA Assault by unarmed brawl or fight, initial encounter; Y93.89 Activity, other specified; Y92.89 Other specified places as the place of occurrence of the external cause; Y99.8 Other external cause status
CPT/HCPCS: 73130; 99284

== ENCOUNTER → 2018-07-24 | Outpatient (CLI) | payer OTHER ==
[~2018-07-24] MED LIST changes: +ONDA4TAB10 SL
--- NOTE | 2018-07-24 17:56 | RAD ---
Five-view lumbar spine dated 07/24/2018. No comparison available. Clinical data indication: Radiculopathy. FINDINGS: AP, lateral, bilateral oblique and cone-down views of lumbosacral junction obtained. 5 nonrib-bearing vertebral levels. Vertebral body and disc heights are maintained. Sagittal alignment is anatomic. Mild arthrosis lower lumbar apophyseal joints. Minimal endplate hypertrophic changes throughout. No pars defects on the oblique views. IMPRESSION: 1. No acute radiographic abnormality. 2. Mild lower lumbar spondylosis. Electronically signed by: Wilmer Yates MD (07/24/2018 5:52 PM) [facility]
== END | disposition home or self-care (01) ==
LOC: RAD 17:22
PROVIDERS: ATTEND Physician Assistant
DX: M47.26 Other spondylosis with radiculopathy, lumbar region (principal)
CPT/HCPCS: 72110

== ENCOUNTER 2018-07-25 14:07 | Emergency (ER) | payer MEDICAID, OTHER ==
[~2018-07-25] VITALS: Ht 176.5 cm; Wt 99.0 kg
[~2018-07-25 14:07] MED LIST changes: -ONDA4TAB10 SL
[2018-07-25] MEDS ORDERED: ONDANSETRON ODT 4 MG TAB.RAPDIS PO ONE (14:30)
[2018-07-25 15:14] LABS: AMPHETAMINE/METHAMPHETAMINE NEG (NEG); BARBITURATES NEG (NEG); BENZODIAZEPINES NEG (NEG); CANNABINOIDS NEG (NEG); COCAINE NEG (NEG); METHADONE NEG (NEG); OPIATES NEG (NEG); PHENCYCLIDINE NEG (NEG)
[2018-07-25] MEDS ORDERED: ONDA4TAB10 SL (15:18)
--- NOTE | 2018-07-25 15:19 | PHYS DOC ---
Past History Past Medical History: Anxiety, Asthma Past Surgical History: No Surgical History Additional Past Surgical Histo: dental extraction 3 weeks ago Smoking: Cigarettes Alcohol Use: None Drug Use: None Adult General Chief Complaint Chief Complaint: NAUSEA/VOMITING/[facility] HPI Patient is a 37 year old male who presents with complaining of nausea and vomiting patient states he cut her foot from [employer] and as soon as started to eat the food had nausea and 2 episodes of vomiting and is concern for possible contamination of the food with some drug. Patient states he is on probation for drugs and doesn't want to have any contamination of his food with drugs and changing his urine drug screen. Patient has had frequent emergency room visits. Review of Systems Review of Systems Constitutional: Denies fever or chills [] Eyes: Denies change in visual acuity, redness, or eye pain [] HENT: Denies nasal congestion or sore throat [] Respiratory: Denies cough or shortness of breath [] Cardiovascular: No additional information not addressed in HPI [] GI: Denies abdominal pain, bloody stools or diarrhea, reports nausea and vomiting [] : Denies dysuria or hematuria [] Musculoskeletal: Denies back pain or joint pain [] Integument: Denies rash or skin lesions [] Neurologic: Denies headache, focal weakness or sensory changes [] Endocrine: Denies polyuria or polydipsia [] All other systems were reviewed and found to be within normal limits, except as documented in this note. Current Medications Current Medications Current Medications Medications (Trade) Dose Ordered Sig/Tommy Start Time Stop Time Status Last Admin Dose Admin Ondansetron HCl (Zofran Odt) 4 mg 1X ONCE 07/25/18 14:30 07/25/18 14:35 DC 07/25/18 15:00 4 MG Allergies Allergies Allergies Coded Allergies Type Severity Reaction Last Updated Verified No Known Drug Allergies 12/16/17 No Physical Exam Physical Exam Constitutional: Well developed, well nourished, no acute distress, non-toxic appearance. [] HENT: Normocephalic, atraumatic, bilateral external ears normal, oropharynx moist, no oral exudates, nose normal. [] Eyes: PERRLA, EOMI, conjunctiva normal, no discharge. [] Neck: Normal range of motion, no tenderness, supple, no stridor. [] Cardiovascular:Heart rate regular rhythm, no murmur [] Lungs & Thorax: Bilateral breath sounds clear to auscultation [] Abdomen: Bowel sounds normal, soft, no tenderness, no masses, no pulsatile masses. [] Skin: Warm, dry, no erythema, no rash. [] Back: No tenderness, no CVA tenderness. [] Extremities: No tenderness, no cyanosis, no clubbing, ROM intact, no edema. [] Neurologic: Alert and oriented X 3, normal motor function, normal sensory function, no focal deficits noted. [] Psychologic: Affect normal, judgement normal, mood normal. [] Current Patient Data Vital Signs Vital Signs Date Time Temp Pulse Resp B/P (MAP) Pulse Ox O2 Delivery O2 Flow Rate FiO2 07/25/18 14:07 98.2 104 20 98 Room Air Lab Results Laboratory Tests Test 07/25/18 14:54 Urine Opiates Screen Neg (NEG) Urine Methadone Screen Neg (NEG) Urine Barbiturates Neg (NEG) Urine Phencyclidine Screen Neg (NEG) Urine Amphetamine/Methamphetamine Neg (NEG) Urine Benzodiazepines Screen Neg (NEG) Urine Cocaine Screen Neg (NEG) Urine Cannabinoids Screen Neg (NEG) Urine Ethyl Alcohol Neg (NEG) EKG EKG [] Radiology/Procedures Radiology/Procedures [] Course & Med Decision Making Course & Med Decision Making Evaluation of patient in ER showed 37-year-old male patient with frequent emergency room visits requesting urine drug screen after ate some food from [place] and believes that had contaminated with some drug. Patient had negative urine drug screen and did not have any episodes of nausea and vomiting but he was in ER. Dragon Disclaimer Dragon Disclaimer This electronic medical record was generated, in whole or in part, using a voice recognition dictation system. Departure Departure: Impression: Primary Impression: Feared condition not demonstrated Additional Impressions: Nausea & vomiting Tobacco abuse Tobacco abuse counseling Disposition: HOME, SELF-CARE (@1517) Condition: IMPROVED Referrals: [facility] (PCP) Patient Instructions: Nausea and Vomiting Additional Instructions: Drink plenty of liquids Follow-up with your primary care physician in 3-5 days Return to ER if not getting better Scripts Ondansetron (ZOFRAN ODT) 4 Mg Tab.rapdis 1 TAB SL Q8HRS PRN for nausea and vomiting, #15 TAB Prov: CATHERINE DENIS MD 07/25/18 Problem Qualifiers CATHERINE DENIS MD Jul 25, 2018 15:18
[2018-07-25 15:24] VITALS: BP 130/48
== END 2018-07-25 15:24 | disposition home or self-care (01) ==
LOC: ER 14:07
DX: Z71.1 Person with feared health complaint in whom no diagnosis is made (principal); R11.2 Nausea with vomiting, unspecified; F17.210 Nicotine dependence, cigarettes, uncomplicated; F41.9 Anxiety disorder, unspecified; J45.909 Unspecified asthma, uncomplicated; Z71.6 Tobacco abuse counseling
CPT/HCPCS: 36415; 80307; 99283; Q0162

== ENCOUNTER → 2018-08-07 | Emergency (ER) | payer MEDICAID ==
[~2018-08-07] VITALS: Ht 175.3 cm; Wt 93.9 kg
[~2018-08-07] MED LIST changes: +EPIN0.3A4 IJ; +HYDR-3165 PO; -HYDR-971 PO; +ONDA4TAB10 SL; +PRED50TA PO
--- NOTE | 2018-08-07 16:41 | RAD ---
EXAM: PA and Lateral Views of the Chest DATE: 08/07/2018 4:31 PM INDICATION: Chest pain COMPARISON: 12/16/2017 FINDINGS: The heart is not enlarged. Mediastinal and hilar contours are normal. No focal parenchymal airspace opacity. No pleural effusion or pneumothorax. IMPRESSION: 1. No radiographic evidence for acute cardiopulmonary process. Electronically signed by: Walt Julien MD (08/07/2018 4:38 PM) [facility]
[2018-08-07 16:56] LABS: HEMATOCRIT 43.2 % (39.0-53.0); HEMOGLOBIN 14.1 g/dL (13.0-17.5); RED BLOOD COUNT 5.13 x10^6/uL (4.30-5.70); WHITE BLOOD COUNT 4.6 x10^3/uL (4.0-11.0)
[2018-08-07 17:08] LABS: ALBUMIN 3.8 g/dL (3.4-5.0); ALBUMIN/GLOBULIN RATIO 1.3 (1.0-1.7); CALCIUM 8.8 mg/dL (8.5-10.1); CREATININE 1.4 mg/dL (0.7-1.3); GFR 68.3; POTASSIUM 4.2 mmol/L (3.5-5.1); TOTAL BILIRUBIN 0.3 mg/dL (0.2-1.0); TOTAL PROTEIN 6.7 g/dL (6.4-8.2)
--- NOTE | 2018-08-07 17:10 | EKG ---
[address] [address] Test Date: 2018-08-07 Test Time: 16:46:01 Pat Name: NASIR DOS SANTOS Department: Room: Gender: M [employer]: : 1980 Requested By: ESTEBAN HOOPER Order Number: [id number] Reading MD: Dariel Flynn Measurements Intervals Ryan Rate: 83 P: 56 DC: 140 QRS: -3 QRSD: 96 T: -5 QT: 372 QTc: 438 Interpretive Statements SINUS RHYTHM LEFTWARD AXIS NONSPECIFIC ST-T WAVE CHANGES. Electronically Signed On 08-08-2018 9:49:51 [employer] by Dariel Flynn
--- NOTE | 2018-08-07 17:22 | PHYS DOC ---
Past History Past Medical History: Anxiety, Asthma Past Surgical History: No Surgical History Additional Past Surgical Histo: dental extraction 3 weeks ago Smoking: Cigarettes Alcohol Use: None Drug Use: None Adult General Chief Complaint Chief Complaint: UPPER EXTREMITY PAIN HPI HPI 37-year-old male presents with right-sided chest pain. Patient states that it was turning some snow shoveling yesterday and afterwards had some right-sided chest pain and exacerbation of his chronic back pain. He went to sleep and slept all night. When he woke up the back pain was improved but he still had a nagging chest pain under the right pectoralis muscle. He denies shortness of breath or diaphoresis. He was just concerned it was more serious since symptoms didn't get better overnight. He denies fever or chills. He has no history of cardiac problems. Review of Systems Review of Systems Constitutional: Denies fever or chills [] Eyes: Denies change in visual acuity, redness, or eye pain [] HENT: Denies nasal congestion or sore throat [] Respiratory: Denies cough or shortness of breath [] Cardiovascular: No additional information not addressed in HPI [] GI: Denies abdominal pain, nausea, vomiting, bloody stools or diarrhea [] : Denies dysuria or hematuria [] Musculoskeletal: Denies back pain or joint pain [] Integument: Denies rash or skin lesions [] Neurologic: Denies headache, focal weakness or sensory changes [] Endocrine: Denies polyuria or polydipsia [] All other systems were reviewed and found to be within normal limits, except as documented in this note. Allergies Allergies Allergies Coded Allergies Type Severity Reaction Last Updated Verified No Known Drug Allergies 12/16/17 No Physical Exam Physical Exam Constitutional: Well developed, well nourished, no acute distress, non-toxic appearance. [] HENT: Normocephalic, atraumatic, bilateral external ears normal, oropharynx moist, no oral exudates, nose normal. [] Eyes: PERRLA, EOMI, conjunctiva normal, no discharge. [] Neck: Normal range of motion, no tenderness, supple, no stridor. [] Cardiovascular:Heart rate regular rhythm, no murmur [] Lungs & Thorax: Bilateral breath sounds clear to auscultation [] Abdomen: Bowel sounds normal, soft, no tenderness, no masses, no pulsatile masses. [] Skin: Warm, dry, no erythema, no rash. [] Back: No tenderness, no CVA tenderness. [] Extremities: No tenderness, no cyanosis, no clubbing, ROM intact, no edema. [] Neurologic: Alert and oriented X 3, normal motor function, normal sensory function, no focal deficits noted. [] Psychologic: Affect normal, judgement normal, mood normal. [] Current Patient Data Vital Signs Vital Signs Date Time Temp Pulse Resp B/P (MAP) Pulse Ox O2 Delivery O2 Flow Rate FiO2 08/07/18 16:51 86 20 115/52 (73) 96 Room Air 08/07/18 16:08 98.4 Lab Results Laboratory Tests Test 08/07/18 16:40 White Blood Count 4.6 x10^3/uL (4.0-11.0) Red Blood Count 5.13 x10^6/uL (4.30-5.70) Hemoglobin 14.1 g/dL (13.0-17.5) Hematocrit 43.2 % (39.0-53.0) Mean Corpuscular Volume 84 fL (79-100) Mean Corpuscular Hemoglobin 28 pg (25-35) Mean Corpuscular Hemoglobin Concent 33 g/dL (31-37) Red Cell Distribution Width 14.0 % (11.5-14.5) Platelet Count 186 x10^3/uL (140-400) Sodium Level 141 mmol/L (136-145) Potassium Level 4.2 mmol/L (3.5-5.1) Chloride Level 105 mmol/L (98-107) Carbon Dioxide Level 27 mmol/L (21-32) Anion Gap 9 (6-14) Blood Urea Nitrogen 16 mg/dL (8-26) Creatinine 1.4 mg/dL (0.7-1.3) H Estimated GFR (Cockcroft-Gault) 68.3 BUN/Creatinine Ratio 11 (6-20) Glucose Level 100 mg/dL (70-99) H Calcium Level 8.8 mg/dL (8.5-10.1) Total Bilirubin 0.3 mg/dL (0.2-1.0) Aspartate Amino Transferase (AST) 16 U/L (15-37) Alanine Aminotransferase (ALT) 22 U/L (16-63) Alkaline Phosphatase 96 U/L (46-116) Troponin I Quantitative < 0.017 ng/mL (0-0.055) Total Protein 6.7 g/dL (6.4-8.2) Albumin 3.8 g/dL (3.4-5.0) Albumin/Globulin Ratio 1.3 (1.0-1.7) Lipase 139 U/L (73-393) EKG EKG Sinus rhythm, rate 83, no ST elevations or depressions.[] Radiology/Procedures Radiology/Procedures [] Impressions: EXAM: PA and Lateral Views of the Chest DATE: 08/07/2018 4:31 PM INDICATION: Chest pain COMPARISON: 12/16/2017 FINDINGS: The heart is not enlarged. Mediastinal and hilar contours are normal. No focal parenchymal airspace opacity. No pleural effusion or pneumothorax. IMPRESSION: 1. No radiographic evidence for acute cardiopulmonary process. Electronically signed by: Walt Julien MD (08/07/2018 4:38 PM) [facility] DICTATED AND SIGNED BY: WALT JULIEN MD DATE: 08/07/18 [id number] CC: ESTEBAN HOOPER DO; [facility] Course & Med Decision Making Course & Med Decision Making Pertinent Labs and Imaging studies reviewed. (See chart for details) A chest x-ray is unremarkable. His troponin is negative. His labs are unremarkable except for slightly elevated creatinine of 1.4. His EKG is unremarkable. I believe the patient just has chest wall discomfort. Likely a strained muscle or intercostal pain/inflammation. I have recommended conservative therapy with [id number] pain meds. The patient is reassured by these results. He is stable for discharge at this time. [] Dragon Disclaimer Dragon Disclaimer This electronic medical record was generated, in whole or in part, using a voice recognition dictation system. Departure Departure: Referrals: [facility] (PCP) ESTEBAN HOOPER DO Aug 07, 2018 17:22
[2018-08-07 17:41] VITALS: BP 121/75
== END ==
LOC: ER 16:08
DX: R07.89 Other chest pain (principal); R79.89 Other specified abnormal findings of blood chemistry; G89.29 Other chronic pain; M54.89 Other dorsalgia; F41.9 Anxiety disorder, unspecified; J45.909 Unspecified asthma, uncomplicated; F17.210 Nicotine dependence, cigarettes, uncomplicated
CPT/HCPCS: 36415; 71046; 80053; 83690; 84484; 85027; 93005; 99284

== ENCOUNTER 2018-08-08 20:05 | Emergency (ER) | payer MEDICAID, OTHER ==
[~2018-08-08] VITALS: Ht 175.3 cm; Wt 93.9 kg
[~2018-08-08 20:05] MED LIST changes: -EPIN0.3A4 IJ; -PRED50TA PO
[2018-08-08] MEDS ORDERED: FAMOTIDINE 20 MG/2 ML VIAL IVP ONE (20:30)
[2018-08-08] MEDS ORDERED: IV NORMAL SALINE 1,000ML 1,000 ML IV ONE (20:30)
[2018-08-08] MEDS ORDERED: methylPREDNISolone SOD SUCC PF 125 MG/2 ML VIAL. IV ONE (20:30)
[2018-08-08] MEDS ORDERED: ALBUTEROL SULFATE 2.5 MG/3 ML NEBU. NEB ONE (20:30)
[2018-08-08] MEDS ORDERED: FAMO-63 PO (20:50)
[2018-08-08] MEDS ORDERED: PRED50TA PO (20:50)
[2018-08-08] MEDS ORDERED: EPIN0.3A4 IJ (20:50)
--- NOTE | 2018-08-08 21:19 | ED.ADGEN ---
Past History Past Medical History: Anxiety, Asthma Past Surgical History: No Surgical History Additional Past Surgical Histo: dental extraction 3 weeks ago Smoking: Cigarettes Alcohol Use: None Drug Use: None Adult General Chief Complaint Chief Complaint Anaphylaxis [facility] HPI Patient is a 37-year-old male with his history of food allergies and anaphylaxis who presents with acute anaphylactic reaction 15 minutes prior to fall after eating nodules with onions with known onions food allergy. Patient initially developed shortness breath chest tightness nausea vomiting. On EMS arrival, the patient was in respiratory distress with mild hypoxia. Epinephrine was given IM. An IV was established Benadryl is given through an IV. Patient was also given a single epidural breathing treatment with improved respiratory symptoms, decreased chest tightness and wheezing on ED arrival. Vital signs stable. Patient states he feels much better. On exam, the patient is not in acute distress. He is not stridorous with nonlabored breathing. There is no appreciated oral pharyngeal swelling or voice hoarseness. He has mild expiratory wheezes present on exam. No rash appreciated. No other acute symptoms or complaints.[] Review of Systems Review of Systems ROS as per HPI All other systems were reviewed and found to be within normal limits, except as documented in this note. Current Medications Current Medications Current Medications Medications (Trade) Dose Ordered Sig/Tommy Start Time Stop Time Status Last Admin Dose Admin Albuterol Sulfate (Ventolin) 2.5 mg 1X ONCE 08/08/18 20:30 08/08/18 20:31 DC 08/08/18 20:41 2.5 MG Famotidine (Pepcid Vial) 40 mg 1X ONCE 08/08/18 20:30 08/08/18 20:31 DC 08/08/18 20:33 40 MG Methylprednisolone Sodium Succinate (SOLU-Medrol 125MG VIAL) 125 mg 1X ONCE 08/08/18 20:30 08/08/18 20:31 DC 08/08/18 20:33 125 MG Sodium Chloride 1,000 ml @ 1,000 mls/hr 1X ONCE 08/08/18 20:30 08/08/18 21:29 08/08/18 20:38 1,000 MLS/HR Allergies Allergies Allergies Coded Allergies Type Severity Reaction Last Updated Verified No Known Drug Allergies 12/16/17 No Physical Exam Physical Exam Constitutional: Well developed, well nourished, no acute distress, non-toxic appearance. [] HENT: Normocephalic, atraumatic, bilateral external ears normal, oropharynx moist, no oral pharyngeal swelling. [] Eyes: PERRLA, EOMI, conjunctiva normal, no discharge. [] Neck: Normal range of motion, no tenderness, supple, no stridor. [] Cardiovascular:Heart rate regular rhythm, no murmur [] Lungs & Thorax: Bilateral breath sounds unlabored, mild expiratory wheezes only.[] Abdomen: Bowel sounds normal, soft, no tenderness. [] Skin: Warm, dry. [] Back: No tenderness. [] Extremities: No tenderness. [] Neurologic: Alert and oriented X 3, normal motor function, normal sensory function, no focal deficits noted. [] Psychologic: Affect normal, judgement normal, mood normal. [] EKG EKG [] Radiology/Procedures Radiology/Procedures [] Course & Med Decision Making Course & Med Decision Making Pertinent Labs and Imaging studies reviewed. (See chart for details) [Pepcid, Solu-Medrol, breathing treatment given. Patient monitored closely without recurrence of symptoms. Symptoms fully resolved prior to ED arrival. Patient will be discharged home with prescription for an epinephrine pen, prednisone and Pepcid. He is instructed that should symptoms recur emergent, he is to use epinephrine pen and call 911. Patient verbalizes understanding agreement discharge instructions prior to departure.] Final Impression Final Impression [acute anaphylaxis] Anna Disclaimer Dragon Disclaimer This electronic medical record was generated, in whole or in part, using a voice recognition dictation system. ESTEBAN FISHER DO Aug 08, 2018 21:19
[2018-08-08 21:40] VITALS: BP 133/83
[2018-08-10] MEDS ORDERED: FAMOTIDINE 20 MG/2 ML VIAL ONE ×2 (05:50→05:55)
[2018-08-10] MEDS ORDERED: METHYLPREDNISOLONE SOD SUCC 1000 MG/8 ML IV ONE (05:51)
[2018-08-10] MEDS ORDERED: methylPREDNISolone SOD SUCC PF 125 MG/2 ML VIAL. ONE (05:55)
== END 2018-08-08 21:45 | disposition home or self-care (01) ==
LOC: ER 20:05
DX: T78.09XA Anaphylactic reaction due to other food products, initial encounter (principal); R11.2 Nausea with vomiting, unspecified; F41.9 Anxiety disorder, unspecified; J45.909 Unspecified asthma, uncomplicated; F17.210 Nicotine dependence, cigarettes, uncomplicated
CPT/HCPCS: 94640; 96361; 96374; 96375; 99283; J2930; J3490; J7613; J7030

== ENCOUNTER 2018-08-13 10:52 | Emergency (ER) | payer MEDICAID, OTHER ==
[~2018-08-13 10:52] MED LIST changes: +EPIN0.3A4 IJ; +PRED50TA PO
[2018-08-13] MEDS ORDERED: LIDOCAINE 2% VISCOUS 15 ML SOLUTION. SWSW ONE (11:15)
[2018-08-13] MEDS ORDERED: METH4TAB2 PO (11:41)
[2018-08-13] MEDS ORDERED: LIDO15SO2 MM (11:41)
--- NOTE | 2018-08-13 11:41 | PHYS DOC ---
Past History Past Medical History: No Pertinent History, Anxiety, Asthma Past Surgical History: No Surgical History Additional Past Surgical Histo: dental extraction 3 weeks ago Smoking: Cigarettes Additional Smoking Information: 1/2 pack a day Alcohol Use: None Drug Use: None Adult General Chief Complaint Chief Complaint: SORE THROAT [facility] HPI Patient is a 37 year old male who presents with complaining of sore throat. Patient states he had an allergic reaction after eating onion on 08/08 and was seen in this emergency room and had the EpiPen injection with improvement of and flex reaction but since then has had sore throat that getting worse with eating and swallowing. Patient denies fever and chills, cough and congestion, nausea and vomiting, sick contact. Patient states he usually gets anaphylaxis reaction with several food but does not get sore throats after his episodes of reaction. Patient complaining of hoarseness voice that does not getting better. Review of Systems Review of Systems Constitutional: Denies fever or chills [] Eyes: Denies change in visual acuity, redness, or eye pain [] HENT: Denies nasal congestion, reports sore throat Respiratory: Denies cough or shortness of breath [] Cardiovascular: No additional information not addressed in HPI [] GI: Denies abdominal pain, nausea, vomiting, bloody stools or diarrhea [] : Denies dysuria or hematuria [] Musculoskeletal: Denies back pain or joint pain [] Integument: Denies rash or skin lesions [] Neurologic: Denies headache, focal weakness or sensory changes [] Endocrine: Denies polyuria or polydipsia [] All other systems were reviewed and found to be within normal limits, except as documented in this note. Current Medications Current Medications Current Medications Medications (Trade) Dose Ordered Sig/Tommy Start Time Stop Time Status Last Admin Dose Admin Lidocaine HCl (Viscous Lidocaine) 15 ml 1X ONCE 08/13/18 11:15 08/13/18 11:28 DC 08/13/18 11:24 15 ML Allergies Allergies Allergies Coded Allergies Type Severity Reaction Last Updated Verified No Known Drug Allergies 12/16/17 No Physical Exam Physical Exam Constitutional: Well developed, well nourished, mild distress, non-toxic appearance. [] HENT: Normocephalic, atraumatic, bilateral external ears normal, oropharynx moist, pharyngeal erythema without edema, no oral exudates, nose normal, mild hoarseness. [] Eyes: PERRLA, EOMI, conjunctiva normal, no discharge. [] Neck: Normal range of motion, no tenderness, supple, no stridor. [] Cardiovascular:Heart rate regular rhythm, no murmur [] Lungs & Thorax: Bilateral breath sounds clear to auscultation [] Skin: Warm, dry, no erythema, no rash. [] Back: No tenderness, no CVA tenderness. [] Extremities: No tenderness, no cyanosis, no clubbing, ROM intact, no edema. [] Neurologic: Alert and oriented X 3, normal motor function, normal sensory function, no focal deficits noted. [] Psychologic: Affect normal, judgement normal, mood normal. [] Current Patient Data Vital Signs Vital Signs Date Time Temp Pulse Resp B/P (MAP) Pulse Ox O2 Delivery O2 Flow Rate FiO2 08/13/18 10:56 98.4 87 16 96 Room Air EKG EKG [] Radiology/Procedures Radiology/Procedures [] Course & Med Decision Making Course & Med Decision Making Pertinent Labs and Imaging studies reviewed. (See chart for details) Evaluation of patient in ER showed 37-year-old male patient with complaining of sore throat and hoarseness after allergic reaction to food 4 days ago. Patient had mild pharyngeal erythema with negative strep test. Patient felt better with applying viscous lidocaine on pharyngeal area. Plan discharge patient home with diagnosis of acute pharyngitis and prescription of viscous lidocaine and Medrol Dosepak. Dragon Disclaimer Dragon Disclaimer This electronic medical record was generated, in whole or in part, using a voice recognition dictation system. Departure Departure: Impression: Primary Impression: Acute laryngitis Additional Impressions: Tobacco abuse Tobacco abuse counseling Disposition: 01 HOME, SELF-CARE (at 1138) Condition: STABLE Referrals: [facility] (PCP) Patient Instructions: Laryngitis Additional Instructions: Drink plenty of liquids Follow-up with your primary care physician in 3-5 days Return to ER if not getting better Scripts Lidocaine HCl (Lidocaine HCl Viscous) 15 Ml Solution 1 ML MM QID PRN for PAIN, #1 MISC Prov: CATHERINE DENIS MD 08/13/18 Methylprednisolone (MEDROL) 4 Mg Tab.ds.pk 1 PKG PO UD for inflammation, #1 PKG Prov: CATHERINE DENIS MD 08/13/18 Problem Qualifiers CATHERINE DENIS MD Aug 13, 2018 11:41
[2018-08-13 11:44] VITALS: BP 152/90
== END 2018-08-13 11:47 | disposition home or self-care (01) ==
LOC: ER 10:52
DX: J04.0 Acute laryngitis (principal); F41.9 Anxiety disorder, unspecified; J45.909 Unspecified asthma, uncomplicated; F17.210 Nicotine dependence, cigarettes, uncomplicated
CPT/HCPCS: 87070; 87880; 99283

== ENCOUNTER 2018-11-19 23:01 | Emergency (ER) | payer MEDICAID, OTHER ==
[~2018-11-19] VITALS: Ht 175.3 cm; Wt 102.1 kg
[~2018-11-19 23:01] MED LIST changes: +ALBU2.5V8 IH; -ALBU8.5H8 IH; +LIDO15SO2 MM; +METH4TAB2 PO
[2018-11-19] MEDS ORDERED: IPRATRPIUM/ALBUTEROL 0.5/2.5MG 3 ML NEBU. ONE (23:07)
[2018-11-19] MEDS ORDERED: FAMOTIDINE 20 MG/2 ML VIAL ONE (23:07)
[2018-11-19] MEDS ORDERED: diphenhydrAMINE 50 MG/ML VIAL ONE (23:07)
[2018-11-19] MEDS ORDERED: methylPREDNISolone SOD SUCC PF 125 MG/2 ML VIAL. ONE (23:07)
--- NOTE | 2018-11-19 23:26 | ED.ADGEN ---
Past History Past Medical History: No Pertinent History, Anxiety, Asthma Past Surgical History: No Surgical History Additional Past Surgical Histo: dental extraction 3 weeks ago Smoking: Cigarettes Alcohol Use: None Drug Use: None Adult General Chief Complaint Chief Complaint ".. I get severe allergy to onions... " [facility] HPI Patient is a 37 year old male who presents with severe onion allergy. Hx. prior hospital admit and intubation due to allergy to onions. Patient states he may have gotten a bunion on his hamburger at [employer], because shortly after that he developed severe wheezing watery, watery eyes and a very itchy sore throat. Patient having obviously respiratory difficulty does have some mild tracheal stridor. Does have wheezing throughout. Patient however is maintaining his saturations but is tachycardic. Patient immediately started on Solu-Medrol , continuous breathing treatment with DuoNeb, Pepcid 20 mg IV, and given milk of magnesia 30 mL. Patient's respiratory effort gradually improved. Eventually patient maintaining saturations 99% without problems and no respiratory difficulties. Patient was offered admission however refused to be admitted stating he would not be in the hospital on his birthday. Risks discussed with patient and his but he is insistent on discharge. Does have a history of asthma and other allergies. Patient does smoke. No history immunosuppression. No history of travel. No history of trauma. Patient normally follows with Dr. Lewis Review of Systems Review of Systems Constitutional: Denies fever or chills [] Eyes: Denies change in visual acuity, redness, or eye pain [] HENT: Denies nasal congestion or sore throat [] Respiratory: History of cough , wheezing and shortness of breath [] Cardiovascular: No additional information not addressed in HPI [] GI: Denies abdominal pain, nausea, vomiting, bloody stools or diarrhea [] : Denies dysuria or hematuria [] Musculoskeletal: Denies back pain or joint pain [] Integument: Denies rash or skin lesions [] Neurologic: Denies headache, focal weakness or sensory changes [] Endocrine: Denies polyuria or polydipsia [] All other systems were reviewed and found to be within normal limits, except as documented in this note. Family History Family History Asthma Current Medications Current Medications Current Medications Medications (Trade) Dose Ordered Sig/Tommy Start Time Stop Time Status Last Admin Dose Admin Albuterol Sulfate (Ventolin Hfa Inhaler) 2 puff 1X ONCE 11/20/18 00:00 11/20/18 00:11 DC 11/20/18 00:18 2 PUFF Albuterol/ Ipratropium (Duoneb) 3 ml 1X ONCE 11/20/18 00:00 11/20/18 00:11 DC 11/20/18 00:12 3 ML Diphenhydramine HCl (Benadryl) 50 mg 1X ONCE 11/19/18 23:45 11/20/18 00:11 DC 11/19/18 23:54 50 MG Famotidine (Pepcid Vial) 20 mg 1X ONCE 11/19/18 23:45 11/20/18 00:11 DC 11/19/18 23:55 20 MG Magnesium Hydroxide (Milk Of Magnesia) 2,400 mg 1X ONCE 11/19/18 23:45 11/19/18 23:46 DC 11/20/18 01:07 2,400 MG Methylprednisolone Sodium Succinate (SOLU-Medrol 125MG VIAL) 125 mg 1X ONCE 11/19/18 23:45 11/20/18 00:11 DC 11/19/18 23:54 125 MG Allergies Allergies Allergies Coded Allergies Type Severity Reaction Last Updated Verified onion Allergy Severe 11/19/18 Yes Physical Exam Physical Exam Constitutional: Well developed, well nourished, in acute respiratory distress , non-toxic appearance. [] HENT: Normocephalic, atraumatic, bilateral external ears normal, oropharynx moist, no oral exudates, nose clear rhinorrhea Eyes: PERRLA, EOMI, conjunctiva normal, no discharge. [] Neck: Normal range of motion, no tenderness, supple, no stridor Cardiovascular: Tachycardia Heart rate regular rhythm, no murmur [] Lungs & Thorax: Bilateral breath sounds equal at apex with scattered wheezes throughout on auscultation [] Abdomen: Bowel sounds decreased, soft, no tenderness, no masses, no pulsatile masses. [] Skin: Warm, dry, no erythema, no rash. [] Back: No tenderness, no CVA tenderness. [] Extremities: No tenderness, no cyanosis, no clubbing, ROM intact, no edema. [] Neurologic: Alert and oriented X 3, normal motor function, normal sensory function, no focal deficits noted. [] Psychologic: Affect anxious., judgement normal, mood normal. [] Current Patient Data Vital Signs Vital Signs Date Time Temp Pulse Resp B/P (MAP) Pulse Ox O2 Delivery O2 Flow Rate FiO2 11/20/18 00:19 100 Room Air EKG EKG [] Radiology/Procedures Radiology/Procedures [] Course & Med Decision Making Course & Med Decision Making Pertinent Labs and Imaging studies reviewed. (See chart for details) Patient improved but not asymptomatic- currently refusing admission. States he will not be in the hospital when it is his birthday. Patient verbalized he understands that he may due to allergic reaction to the ingestion of the onions. But patient is insistent on discharge. Patient uses MDI 2 puffs 4 times a day. Patient take Benadryl 50 mg 4 times a day. Patient take prednisone 50 mg a day. Patient takes Zantac and 50 mg twice a day. Patient follow-up primary care. Patient encouraged to stay on a clear fluid diet. Patient encouraged to stop smoking. Patient to follow-up with primary care. [] Final Impression Final Impression 1. Hx. of Severe allergy to onions[] 2. History of asthma 3. History of tobacco use Dragon Disclaimer Dragon Disclaimer This electronic medical record was generated, in whole or in part, using a voice recognition dictation system. Discharge Summary Visit Information Final Diagnosis Problems Medical Problems: (1) Allergic Status: Acute Brief Hospital Course Allergies Allergies Coded Allergies Type Severity Reaction Last Updated Verified onion Allergy Severe 11/19/18 Yes Vital Signs Vital Signs Date Time Temp Pulse Resp B/P (MAP) Pulse Ox O2 Delivery O2 Flow Rate FiO2 11/20/18 00:19 100 Room Air Brief Hospital Course Mr. Jackson is a 38 old male who presented with respiratory distress secondary suspect onion ingestion. Discharge Information Condition at Discharge: Improved Disposition/Orders: D/C to Home Dischare Medications Current Medications Albuterol/ Ipratropium (Duoneb) 3 ml STK-MED ONCE .ROUTE ; Start 11/19/18 at 23: 07; Stop 11/19/18 at 23:08; Status DC Diphenhydramine HCl (Benadryl) 50 mg STK-MED ONCE .ROUTE ; Start 11/19/18 at 23: 07; Stop 11/19/18 at 23:08; Status DC Methylprednisolone Sodium Succinate (SOLU-Medrol 125MG VIAL) 125 mg STK-MED ONCE .ROUTE ; Start 11/19/18 at 23:07; Stop 11/19/18 at 23:08; Status DC Famotidine (Pepcid Vial) 20 mg STK-MED ONCE .ROUTE ; Start 11/19/18 at 23:07; Stop 11/19/18 at 23:08; Status DC Magnesium Hydroxide (Milk Of Magnesia) 2,400 mg 1X ONCE PO Last administered on 11/20/18at 01:07; Admin Dose 2,400 MG; Start 11/19/18 at 23:45; Stop 11/19/18 at 23:46; Status DC Albuterol Sulfate (Ventolin Hfa Inhaler) 2 puff 1X ONCE INH Last administered on 11/20/18at 00:18; Admin Dose 2 PUFF; Start 11/20/18 at 00:00; Stop 11/20/18 at 00:11; Status DC Diphenhydramine HCl (Benadryl) 50 mg 1X ONCE IVP Last administered on at 23:54; Admin Dose 50 MG; Start 11/19/18 at 23:45; Stop 11/20/18 at 00:11; Status DC Famotidine (Pepcid Vial) 20 mg 1X ONCE IVP Last administered on 11/19/18at 23: 55; Admin Dose 20 MG; Start 11/19/18 at 23:45; Stop 11/20/18 at 00:11; Status DC Methylprednisolone Sodium Succinate (SOLU-Medrol 125MG VIAL) 125 mg 1X ONCE IV Last administered on 11/19/18at 23:54; Admin Dose 125 MG; Start 11/19/18 at 23: 45; Stop 11/20/18 at 00:11; Status DC Albuterol/ Ipratropium (Duoneb) 3 ml 1X ONCE NEB Last administered on at 00:12; Admin Dose 3 ML; Start 11/20/18 at 00:00; Stop 11/20/18 at 00:11; Status DC Active Scripts Active Zantac (Ranitidine Hcl) 150 Mg Tablet 150 Mg PO TWICE A DAY 10 Days Prednisone 50 Mg Tablet 50 Mg PO DAILY 5 Days Lidocaine HCl Viscous (Lidocaine HCl) 15 Ml Solution 1 Ml MM QID PRN Medrol (Methylprednisolone) 4 Mg Tab.ds.pk 1 Pkg PO UD Pepcid (Famotidine) 20 Mg Tablet 20 Mg PO BID 5 Days Prednisone 50 Mg Tablet 1 Tab PO DAILY Epipen 2-Tye (Epinephrine) 0.3 Mg/0.3 Ml Auto.injct 0.3 Mg IJ 1X PRN 1 Days Zofran Odt (Ondansetron) 4 Mg Tab.rapdis 1 Tab SL Q8HRS PRN Ibuprofen 600 Mg Tablet 600 Mg PO PRN Q8HRS PRN take with food or milk [Lidoderm 5% patch] 1 Patch TOP PRN Q12HR PRN apply to affected area for 12 hours, then remove for 12 hours. Pepcid (Famotidine) 20 Mg Tablet 1 Tab PO BID 7 Days Carafate (Sucralfate) 1 Gm/10 Ml Oral.susp 10 Ml PO BID Reported Prazosin Hcl 1 Mg Capsule 1 Mg PO HS Quetiapine Fumarate 25 Mg Tablet 25 Mg PO HS Prozac (Fluoxetine Hcl) 10 Mg Capsule 10 Mg PO DAILY Anna Disclaimer This chart was dictated in whole or in part using Voice Recognition software in a busy, high-work load, and often noisy Emergency Department environment. It may contain unintended and wholly unrecognized errors or omissions. BIBIANA RO MD Nov 19, 2018 23:26
[2018-11-19] MEDS ORDERED: diphenhydrAMINE 50 MG/ML VIAL IVP ONE (23:45)
[2018-11-19] MEDS ORDERED: methylPREDNISolone SOD SUCC PF 125 MG/2 ML VIAL. IV ONE (23:45)
[2018-11-19] MEDS ORDERED: MAGNESIUM HYDROXIDE 2,400 MG/30 ML ORAL.SUSP. PO ONE (23:45)
[2018-11-19] MEDS ORDERED: FAMOTIDINE 20 MG/2 ML VIAL IVP ONE (23:45)
[2018-11-19] MEDS ORDERED: PRED50TA PO (23:47)
[2018-11-19] MEDS ORDERED: RANI150T21 PO (23:47)
[2018-11-20] MEDS ORDERED: ALBUTEROL SULFATE 8GM INHALER. INH ONE
[2018-11-20] MEDS ORDERED: IPRATRPIUM/ALBUTEROL 0.5/2.5MG 3 ML NEBU. NEB ONE
[2018-11-20 00:52] VITALS: BP 130/74
== END 2018-11-20 01:10 | disposition home or self-care (01) ==
LOC: ER 23:01
DX: T78.1XXA Other adverse food reactions, not elsewhere classified, initial encounter (principal); F41.9 Anxiety disorder, unspecified; J45.909 Unspecified asthma, uncomplicated; F17.210 Nicotine dependence, cigarettes, uncomplicated; Z91.018 Allergy to other foods; X58.XXXA Exposure to other specified factors, initial encounter
CPT/HCPCS: 94640; 96374; 96375; 99284; J1200; J2930; J3490; J7613; J7620

== ENCOUNTER 2018-12-02 17:15 | Emergency (ER) | payer OTHER ==
[~2018-12-02] VITALS: Ht 175.3 cm; Wt 93.9 kg
[~2018-12-02 17:15] MED LIST changes: +RANI150T21 PO
[2018-12-02 17:25] VITALS: BP 130/74
--- NOTE | 2018-12-02 17:41 | PHYS DOC ---
Past History Past Medical History: Anxiety, Asthma Past Surgical History: No Surgical History Additional Past Surgical Histo: dental extraction 3 weeks ago Smoking: Cigarettes Alcohol Use: None Drug Use: None Adult General Chief Complaint Chief Complaint: DIFFICULTY SWALLOWING [facility] 38-year-old male presents with sore throat. The patient had an allergic reaction to onions one week ago. He came to the hospital at that time. Since then, he has had pain with swallowing. He initially thought it was just due to the reaction, but is not getting better. It is painful to swallow both solids and liquids. He does not feel like things are getting stuck. He has not had a pattern of difficulty swallowing prior to this. He's had no repeat exposures to foods he is allergic to. He denies fever or chills. He is never had an EGD. He denies having a history of heartburn. Review of Systems Review of Systems Constitutional: Denies fever or chills [] Eyes: Denies change in visual acuity, redness, or eye pain [] HENT: sore throat [] Respiratory: Denies cough or shortness of breath [] Cardiovascular: No additional information not addressed in HPI [] GI: Denies abdominal pain, nausea, vomiting, bloody stools or diarrhea [] : Denies dysuria or hematuria [] Musculoskeletal: Denies back pain or joint pain [] Integument: Denies rash or skin lesions [] Neurologic: Denies headache, focal weakness or sensory changes [] Endocrine: Denies polyuria or polydipsia [] All other systems were reviewed and found to be within normal limits, except as documented in this note. Allergies Allergies Allergies Coded Allergies Type Severity Reaction Last Updated Verified onion Allergy Severe 11/19/18 Yes mayonnaise Allergy Unknown 12/02/18 Yes Physical Exam Physical Exam Constitutional: Well developed, well nourished, no acute distress, non-toxic appearance. [] HENT: Normocephalic, atraumatic, bilateral external ears normal, oropharynx erythematous without exudates, nose normal. [] Eyes: PERRLA, EOMI, conjunctiva normal, no discharge. [] Neck: Normal range of motion, no tenderness, supple, no stridor. [] Cardiovascular:Heart rate regular rhythm, no murmur [] Lungs & Thorax: Bilateral breath sounds clear to auscultation [] Abdomen: Bowel sounds normal, soft, no tenderness, no masses, no pulsatile masses. [] Skin: Warm, dry, no erythema, no rash. [] Back: No tenderness, no CVA tenderness. [] Extremities: No tenderness, no cyanosis, no clubbing, ROM intact, no edema. [] Neurologic: Alert and oriented X 3, normal motor function, normal sensory function, no focal deficits noted. [] Psychologic: Affect normal, judgement normal, mood normal. [] Current Patient Data Vital Signs Vital Signs Date Time Temp Pulse Resp B/P (MAP) Pulse Ox O2 Delivery O2 Flow Rate FiO2 12/02/18 17:25 98.7 73 20 100 Room Air EKG EKG [] Radiology/Procedures Radiology/Procedures [] Course & Med Decision Making Course & Med Decision Making Pertinent Labs and Imaging studies reviewed. (See chart for details) The patient's rapid strep is negative. I'm not sure if his pain is due to an esophageal cause feet just has another viral pharyngitis. I will advise supportive care at this time. If he develops a fever he should be reexamined. If the feeling does not go away in another week he should consider EGD. I will also recommend that he consider a trial of Nexium [id number] at home to see if this helps. [] Dragon Disclaimer Dragon Disclaimer This electronic medical record was generated, in whole or in part, using a voice recognition dictation system. Departure Departure: Impression: Primary Impression: Acute viral pharyngitis Disposition: HOME, SELF-CARE Condition: STABLE Referrals: [facility] (PCP) Patient Instructions: Viral and Bacterial Pharyngitis, [id number] ESTEBAN HOOPER DO Dec 02, 2018 17:41
--- NOTE | 2018-12-02 18:23 | RAD ---
Two-view soft tissue neck HISTORY: Globus, painful swallowing allergic reaction one week ago AP lateral views of the soft tissues neck were obtained There is mild tapering of the trachea on the right. The epiglottis is normal. There is no prevertebral soft tissue swelling. IMPRESSION: Mild right-sided subglottic edema. Electronically signed by: Esteban Casas III, MD (12/02/2018 6:20 PM) [facility] [place] [facility]
[2018-12-02] MEDS ORDERED: DEXAMETHASONE SOD PHOS 10 MG/ML VIAL IM ONE (19:30)
== END 2018-12-02 18:56 | disposition home or self-care (01) ==
LOC: ER 17:15
DX: J02.8 Acute pharyngitis due to other specified organisms (principal); B97.89 Other viral agents as the cause of diseases classified elsewhere; J38.4 Edema of larynx; F41.9 Anxiety disorder, unspecified; J45.909 Unspecified asthma, uncomplicated; F17.210 Nicotine dependence, cigarettes, uncomplicated; Z91.018 Allergy to other foods
CPT/HCPCS: 70360; 87070; 87880; 96372; 99284; J1100

== ENCOUNTER 2019-01-17 12:49 | Emergency (ER) | payer MEDICAID, OTHER ==
[~2019-01-17] VITALS: Ht 175.3 cm; Wt 102.1 kg
[2019-01-17] MEDS ORDERED: NAPR500T8 PO (13:08)
--- NOTE | 2019-01-17 13:08 | PHYS DOC ---
Past History Past Medical History: Anxiety, Asthma Past Surgical History: Other Additional Past Surgical Histo: dental extraction 3 weeks ago Smoking: Cigarettes Alcohol Use: None Drug Use: None Adult General Chief Complaint Chief Complaint: LOWEREXTREMITY INJURY HPI HPI 38-year-old male presents with right lower leg pain. He states he banged the back of his lower leg on a lawnmower 5 days ago. He stated that it didn't start hurting until a day or 2 ago. He denies any other injuries. He states the pain is worse when he tries to ambulate.[] Review of Systems Review of Systems Musculoskeletal: As described in history of present illness[] All other systems were reviewed and found to be within normal limits, except as documented in this note. Allergies Allergies Allergies Coded Allergies Type Severity Reaction Last Updated Verified onion Allergy Severe 11/19/18 Yes mayonnaise Allergy Unknown 12/02/18 Yes Physical Exam Physical Exam Constitutional: Well developed, well nourished, no acute distress, non-toxic appearance. [] [] Skin: Warm, dry, no erythema, no rash. [] Back: No tenderness, no CVA tenderness. [] Extremities: Right lower extremity it is difficult to find anything abnormal other than tenderness to palpation that is far more extreme than any physical exam findings. There is no swelling no bruising no abrasion Achilles tendon is intact. [] [] Psychologic: Anxious[] Current Patient Data Vital Signs Vital Signs Date Time Temp Pulse Resp B/P (MAP) Pulse Ox O2 Delivery O2 Flow Rate FiO2 01/17/19 12:55 98.3 88 20 97 Room Air EKG EKG [] Radiology/Procedures Radiology/Procedures [] Course & Med Decision Making Course & Med Decision Making Pertinent Labs and Imaging studies reviewed. (See chart for details) [] Dragon Disclaimer Dragon Disclaimer This electronic medical record was generated, in whole or in part, using a voice recognition dictation system. Departure Departure: Impression: Primary Impression: Contusion of right lower leg Disposition: HOME, SELF-CARE Condition: STABLE Referrals: [facility] (PCP) Patient Instructions: Contusion Additional Instructions: Activity as tolerated. Return to the emergency Department a new or concerning symptoms Scripts Naproxen (NAPROXEN) 500 Mg Tablet.dr 1 TAB PO Q12HR PRN for PAIN, #30 TAB 1 Refill Prov: STEPHANIE NÚÑEZ DO 01/17/19 Problem Qualifiers Primary Impression: Contusion of right lower leg Encounter type: initial encounter Qualified Codes: S80.11XA - Contusion of right lower leg, initial encounter STEPHANIE NÚÑEZ DO January 17, 2019 13:08
[2019-01-17 13:10] VITALS: BP 157/87
== END 2019-01-17 13:12 | disposition home or self-care (01) ==
LOC: ER 12:49
DX: S80.11XA Contusion of right lower leg, initial encounter (principal); F41.9 Anxiety disorder, unspecified; J45.909 Unspecified asthma, uncomplicated; F17.210 Nicotine dependence, cigarettes, uncomplicated; Z91.018 Allergy to other foods; W22.8XXA Striking against or struck by other objects, initial encounter; Y93.89 Activity, other specified; Y92.89 Other specified places as the place of occurrence of the external cause; Y99.8 Other external cause status
CPT/HCPCS: 99283

== ENCOUNTER 2019-02-04 11:17 | Emergency (ER) | payer MEDICAID ==
[~2019-02-04 11:17] MED LIST changes: +NAPR500T8 PO
--- NOTE | 2019-02-04 12:23 | PHYS DOC ---
Past History Past Medical History: Anxiety, Asthma Past Surgical History: Other Additional Past Surgical Histo: dental extraction 3 weeks ago Smoking: Cigarettes Alcohol Use: None Drug Use: None Adult General Chief Complaint Chief Complaint: BLOOD IN URINE HPI HPI Patient is a 38-year-old male presents with blood in his urine that he noticed last night, and it happened again this morning. Noted some stinging sensation with urination. That is mild. Denies any trauma. Notes he has had some low back pain for the past several days after lifting a large paving stone. No fever. He has been taking ibuprofen for this back discomfort. Denies any trauma. Denies any testicular pain. Denies any fever.[] Review of Systems Review of Systems Constitutional: Denies fever or chills [] Eyes: Denies change in visual acuity, redness, or eye pain [] HENT: Denies nasal congestion or sore throat [] Respiratory: Denies cough or shortness of breath [] Cardiovascular: No chest pain or palpitations[] GI: Denies abdominal pain, nausea, vomiting, bloody stools or diarrhea [] : See history of present illness[] Musculoskeletal: Denies back pain or joint pain [] Integument: Denies rash or skin lesions [] Neurologic: Denies headache, focal weakness or sensory changes [] Endocrine: Denies polyuria or polydipsia [] All other systems were reviewed and found to be within normal limits, except as documented in this note. Allergies Allergies Allergies Coded Allergies Type Severity Reaction Last Updated Verified onion Allergy Severe 11/19/18 Yes mayonnaise Allergy Unknown 12/02/18 Yes Physical Exam Physical Exam Constitutional: Well developed, well nourished, no acute distress, non-toxic appearance. [] HENT: Normocephalic, atraumatic, bilateral external ears normal, oropharynx moist, no oral exudates, nose normal. [] Eyes: PERRLA, EOMI, conjunctiva normal, no discharge. [] Neck: Normal range of motion, no tenderness, supple, no stridor. [] Cardiovascular:Heart rate regular rhythm, no murmur [] Lungs & Thorax: Bilateral breath sounds clear to auscultation [] Abdomen: Bowel sounds normal, soft, no tenderness, no masses, no pulsatile masses. exam: Normal male with bilateral descended testes. No tenderness to palpation of the testes. Normal cremasteric reflex. No urethral discharge or bleeding. No lesions noted.[] Skin: Warm, dry, no erythema, no rash. [] Back: No tenderness, no CVA tenderness. [] Extremities: No tenderness, no cyanosis, no clubbing, ROM intact, no edema. [] Neurologic: Alert and oriented X 3, normal motor function, normal sensory function, no focal deficits noted. [] Psychologic: Affect normal, judgement normal, mood normal. [] Current Patient Data Vital Signs Vital Signs Date Time Temp Pulse Resp B/P (MAP) Pulse Ox O2 Delivery O2 Flow Rate FiO2 02/04/19 11:20 97.5 81 18 99 Room Air EKG EKG [] Radiology/Procedures Radiology/Procedures PROCEDURE: CT ABDOMEN PELVIS WO CONTRAST CT scan of the abdomen and pelvis without contrast 02/04/2019 CLINICAL HISTORY: Hematuria for 2 days. Low back pain for one week. TECHNIQUE: Unenhanced, contiguous, 3 mm axial sections were obtained through the abdomen and pelvis. One or more of the following individualized dose reduction techniques were utilized for this study: 1. Automated exposure control. 2. Adjustment of the mA and/or kV according to patient size. 3. Use of iterative reconstruction technique. FINDINGS: Images through the lung bases are within normal limits. The liver, spleen, pancreas, and adrenal glands are within normal limits. No renal or ureteral calculus is seen. There is no evidence of obstruction of either collecting system. The abdominal aorta tapers normally. The gallbladder is contracted. No free fluid or free air is seen within the abdomen. There is no evidence of bowel obstruction. The appendix is well-visualized and is within normal limits. Images through pelvis demonstrate the urinary bladder to be contracted. No distal ureteral calculus is seen. No free fluid is noted. Minimal S-shaped curvature of the thoracolumbar spine is noted. IMPRESSION: No acute abnormality is seen.[] Course & Med Decision Making Course & Med Decision Making Pertinent Labs and Imaging studies reviewed. (See chart for details) ED course: Patient arrived, was placed in bed, and tolerated exam well. His transferred to and from [place] with any consultations. After return lab and imaging findings, these were discussed with the patient voiced understanding. All questions were answered. He was discharged in improved condition. Medical decision making: There is no evidence of a stone, tumor, significant anemia, renal dysfunction, nor significant infection. We'll cover him for the possibility of a urinary tract infection as well as pain management. Discussed with patient need for follow-up for further evaluation of this hematuria.[] Anna Disclaimer Dragon Disclaimer This electronic medical record was generated, in whole or in part, using a voice recognition dictation system. Departure Departure: Impression: Primary Impression: Hematuria Disposition: HOME, SELF-CARE Condition: IMPROVED Referrals: [facility] (PCP) Follow-up in 2 days Patient Instructions: Hematoma, [id number] Additional Instructions: Drink plenty of fluids. Avoid medicines that may thin your blood such as as pirin, ibuprofen, and Naprosyn. Follow-up with your regular doctor in 2 days. Return to the ER if worsening pain or any other concerns. Scripts Cephalexin (KEFLEX) 500 Mg Capsule 500 MG PO QID for hematuria for 10 Days, #40 CAP Prov: MARCELINO BETANCUR DO 02/04/19 Tramadol Hcl (TRAMADOL HCL) 50 Mg Tablet 50 MG PO PRN Q6HRS PRN for PAIN, #20 TAB Prov: MARCELINO BETANCUR DO 02/04/19 Problem Qualifiers Primary Impression: Hematuria Hematuria type: unspecified type Qualified Codes: R31.9 - Hematuria, unspecified MARCELINO BETANCUR DO February 04, 2019 12:23
--- NOTE | 2019-02-04 13:02 | RAD ---
CT scan of the abdomen and pelvis without contrast 02/04/2019 CLINICAL HISTORY: Hematuria for 2 days. Low back pain for one week. TECHNIQUE: Unenhanced, contiguous, 3 mm axial sections were obtained through the abdomen and pelvis. One or more of the following individualized dose reduction techniques were utilized for this study: 1. Automated exposure control. 2. Adjustment of the mA and/or kV according to patient size. 3. Use of iterative reconstruction technique. FINDINGS: Images through the lung bases are within normal limits. The liver, spleen, pancreas, and adrenal glands are within normal limits. No renal or ureteral calculus is seen. There is no evidence of obstruction of either collecting system. The abdominal aorta tapers normally. The gallbladder is contracted. No free fluid or free air is seen within the abdomen. There is no evidence of bowel obstruction. The appendix is well-visualized and is within normal limits. Images through pelvis demonstrate the urinary bladder to be contracted. No distal ureteral calculus is seen. No free fluid is noted. Minimal S-shaped curvature of the thoracolumbar spine is noted. IMPRESSION: No acute abnormality is seen. Electronically signed by: Franco Walker MD (02/04/2019 12:58 PM) [facility]
[2019-02-04 13:03] LABS: BASO # 0.1 x10^3/uL (0.0-0.2); BASO % 1 % (0-3); EOS # 0.2 x10^3/uL (0.0-0.7); EOS % 4 % (0-3); HEMATOCRIT 45.1 % (39.0-53.0); HEMOGLOBIN 14.9 g/dL (13.0-17.5); LYMPH # 1.7 x10^3/uL (1.0-4.8); LYMPH % 34 % (24-48); MEAN CORPUSCULAR HEMOGLOBIN 28 pg (25-35); MEAN CORPUSCULAR HGB CONC 33 g/dL (31-37); MEAN CORPUSCULAR VOLUME 85 fL (79-100); MONO # 0.8 x10^3/uL (0.0-1.1); MONO % 16 % (0-9); NEUT # 2.1 x10^3uL (1.8-7.7); NEUT % 44 % (31-73); PLATELET COUNT 212 x10^3/uL (140-400); RED BLOOD COUNT 5.29 x10^6/uL (4.30-5.70); RED CELL DISTRIBUTION WIDTH 13.6 % (11.5-14.5); WHITE BLOOD COUNT 4.9 x10^3/uL (4.0-11.0)
[2019-02-04 13:10] LABS: CALCIUM 9.1 mg/dL (8.5-10.1); CREATININE 1.2 mg/dL (0.7-1.3); GFR 81.1; POTASSIUM 3.8 mmol/L (3.5-5.1)
[2019-02-04 13:12] LABS: CLARITY,URINE CLEAR; COLOR,URINE YELLOW; GLUCOSE,URINE NEG (NEG)
[2019-02-04 13:13] LABS: BACTERIA,URINE FEW /HPF (0-FEW); BILIRUBIN,URINE NEG (NEG); NITRITE,URINE NEG (NEG); SQUAMOUS EPITHELIAL CELL,UR OCC /LPF; UROBILINOGEN,URINE 1 mg/dL (0.2 mg/dL); WBC,URINE RARE /HPF (0-4)
[2019-02-04] MEDS ORDERED: CEPH-264 PO (13:49)
[2019-02-04] MEDS ORDERED: TRAM50TA PO (13:49)
[2019-02-04 14:00] VITALS: BP 150/64
== END 2019-02-04 14:03 | disposition home or self-care (01) ==
LOC: ER 11:17
DX: R31.9 Hematuria, unspecified (principal); M54.5 Low back pain; F41.9 Anxiety disorder, unspecified; J45.909 Unspecified asthma, uncomplicated; F17.210 Nicotine dependence, cigarettes, uncomplicated; Z91.018 Allergy to other foods
CPT/HCPCS: 36415; 74176; 80048; 81001; 85025; 85610; 87491; 87591; 99285-25

== ENCOUNTER → 2019-02-06 | Outpatient (CLI) | payer MEDICAID, OTHER ==
[2019-02-04 14:00] VITALS: BP 150/64
[~2019-02-06] MED LIST changes: +TRAM50TA PO
--- NOTE | 2019-02-06 16:28 | RAD ---
Testicular and scrotal ultrasound History: Left testicular pain for 3 days, swelling Comparison: None. Findings: Multiple grayscale, color, and duplex spectral analysis of images of the testicles and scrotum are submitted. Right testicle measured 3.7 x 3 x 2.2 cm. Left testicle measured 3.1 x 2.9 x 2 cm. No intratesticular mass is demonstrated on either side. There is normal low resistance vascularity of interrogated intratesticular vessels bilaterally. There are scattered small foci of hyperechogenicity of the testicles although relatively mild, evidence of microlithiasis. There are small hydroceles bilaterally. Left epididymis is more enlarged and hypervascular than the right. Impression: 1. Left epididymis is more enlarged and hypervascular than the right likely due to epididymitis. 2. There is mild nonspecific microlithiasis bilaterally. There are small bilateral hydroceles. Electronically signed by: Mukul Mixon MD (02/06/2019 4:25 PM) [id number]
== END | disposition home or self-care (01) ==
LOC: US 15:13
PROVIDERS: ATTEND Physician Assistant
DX: N45.1 Epididymitis (principal); N43.3 Hydrocele, unspecified
CPT/HCPCS: 76870

== ENCOUNTER 2019-06-09 19:11 | Emergency (ER) | payer OTHER ==
[~2019-06-09] VITALS: Ht 175.3 cm; Wt 98.0 kg
[~2019-06-09 19:11] MED LIST changes: +RANI-376 PO; -RANI150T21 PO
[2019-06-09] MEDS ORDERED: IV NORMAL SALINE 1,000ML 1,000 ML IV ONE (19:45)
[2019-06-09] MEDS ORDERED: SMZ/TMP 800/160MG TABLET. PO ONE (20:00)
[2019-06-09] MEDS ORDERED: SULF1TAB24 PO (20:18)
--- NOTE | 2019-06-09 20:19 | PHYS DOC ---
Past History Past Medical History: Anxiety, Asthma Past Surgical History: Other Additional Past Surgical Histo: dental extraction 3 weeks ago Smoking: Cigarettes Alcohol Use: None Drug Use: None Adult General Chief Complaint Chief Complaint: FACE PROBLEM HPI HPI 38-year-old male presents with left facial abscess. Patient was bit by a spider about a week ago. The area started to swell up few days later. He has had some purulent drainage from it yesterday and today. He had 2 Keflex left over home from a previous prescription so he took them. Patient denies fever or chills. He has some general facial pain and has felt more fatigued than normal. He denies any other complaints. Review of Systems Review of Systems Constitutional: Denies fever or chills [] Eyes: Denies change in visual acuity, redness, or eye pain [] HENT: Denies nasal congestion or sore throat [] Respiratory: Denies cough or shortness of breath [] Cardiovascular: No additional information not addressed in HPI [] GI: Denies abdominal pain, nausea, vomiting, bloody stools or diarrhea [] : Denies dysuria or hematuria [] Musculoskeletal: Denies back pain or joint pain [] Integument: Abscess left cheek[] Neurologic: Denies headache, focal weakness or sensory changes [] Endocrine: Denies polyuria or polydipsia [] All other systems were reviewed and found to be within normal limits, except as documented in this note. Current Medications Current Medications Current Medications Medications (Trade) Dose Ordered Sig/Tommy Start Time Stop Time Status Last Admin Dose Admin Sodium Chloride 1,000 ml @ 1,000 mls/hr 1X ONCE 06/09/19 19:45 06/09/19 20:44 06/09/19 20:07 1,000 MLS/HR Trimethoprim/ Sulfamethoxazole (Bactrim Ds) 2 tab 1X ONCE 06/09/19 20:00 06/09/19 20:01 DC Allergies Allergies Allergies Coded Allergies Type Severity Reaction Last Updated Verified onion Allergy Severe 11/19/18 Yes mayonnaise Allergy Unknown 12/02/18 Yes Physical Exam Physical Exam Constitutional: Well developed, well nourished, no acute distress, non-toxic appearance. [] HENT: Normocephalic, atraumatic, bilateral external ears normal, oropharynx moist, no oral exudates, nose normal. [] Eyes: PERRLA, EOMI, conjunctiva normal, no discharge. [] Neck: Normal range of motion, no tenderness, supple, no stridor. [] Cardiovascular:Heart rate regular rhythm, no murmur [] Lungs & Thorax: Bilateral breath sounds clear to auscultation [] Abdomen: Bowel sounds normal, soft, no tenderness, no masses, no pulsatile masses. [] Skin: 1.5 cm abscess of the left cheek[] Back: No tenderness, no CVA tenderness. [] Extremities: No tenderness, no cyanosis, no clubbing, ROM intact, no edema. [] Neurologic: Alert and oriented X 3, normal motor function, normal sensory function, no focal deficits noted. [] Psychologic: Affect normal, judgement normal, mood normal. [] EKG EKG [] Radiology/Procedures Radiology/Procedures [] Course & Med Decision Making Course & Med Decision Making Pertinent Labs and Imaging studies reviewed. (See chart for details) The patient has superficial abscess of the left cheek. I was able to get some spontaneous drainage from it. I sent a wound culture. I will place him on Bactrim DS for 7 days. He is stable for discharge at this time. [] Dragon Disclaimer Dragon Disclaimer This electronic medical record was generated, in whole or in part, using a voice recognition dictation system. Departure Departure: Impression: Primary Impression: Abscess of face Disposition: 01 HOME, SELF-CARE Condition: STABLE Referrals: [facility] (PCP) Patient Instructions: Abscess, [id number] Scripts Sulfamethoxazole/Trimethoprim (BACTRIM DS TABLET) 1 Each Tablet 1 TAB PO BID for abscess, #14 TAB Prov: ESTEBAN HOOPER DO 06/09/19 ESTEBAN HOOPER DO Jun 09, 2019 20:19
[2019-06-09 20:24] LABS: BASO # 0.1 x10^3/uL (0.0-0.2); BASO % 2 % (0-3); EOS # 0.2 x10^3/uL (0.0-0.7); EOS % 3 % (0-3); HEMATOCRIT 40.2 % (39.0-53.0); HEMOGLOBIN 13.5 g/dL (13.0-17.5); LYMPH # 2.3 x10^3/uL (1.0-4.8); LYMPH % 33 % (24-48); MEAN CORPUSCULAR HEMOGLOBIN 29 pg (25-35); MEAN CORPUSCULAR HGB CONC 34 g/dL (31-37); MEAN CORPUSCULAR VOLUME 85 fL (79-100); MONO # 0.7 x10^3/uL (0.0-1.1); MONO % 11 % (0-9); NEUT # 3.6 x10^3uL (1.8-7.7); NEUT % 52 % (31-73); PLATELET COUNT 193 x10^3/uL (140-400); RED BLOOD COUNT 4.73 x10^6/uL (4.30-5.70); RED CELL DISTRIBUTION WIDTH 13.9 % (11.5-14.5)
[2019-06-09 20:37] LABS: ALBUMIN 3.5 g/dL (3.4-5.0); CREATININE 1.3 mg/dL (0.7-1.3); POTASSIUM 3.7 mmol/L (3.5-5.1); TOTAL BILIRUBIN 0.2 mg/dL (0.2-1.0); TOTAL PROTEIN 6.9 g/dL (6.4-8.2)
[2019-06-09 20:59] VITALS: BP 156/93
== END 2019-06-09 21:00 | disposition home or self-care (01) ==
LOC: ER 19:11
DX: L02.01 Cutaneous abscess of face (principal); J45.909 Unspecified asthma, uncomplicated; F17.210 Nicotine dependence, cigarettes, uncomplicated; Z91.018 Allergy to other foods
CPT/HCPCS: 36415; 80053; 85025; 87070; 87186; 99284-25; J7030

== ENCOUNTER 2019-09-15 15:45 | Emergency (ER) | payer OTHER ==
[~2019-09-15] VITALS: Ht 175.3 cm; Wt 98.0 kg
[~2019-09-15 15:45] MED LIST changes: +SULF1TAB24 PO
[2019-09-15 15:54] VITALS: BP 130/76
[2019-09-15] MEDS ORDERED: NEOMYCIN/BACI/POLY/HC OPHTH OINTMENT 3.5GM TUBE. OU STA (15:59)
--- NOTE | 2019-09-15 16:08 | PHYS DOC ---
Past History Past Medical History: No Pertinent History Past Surgical History: No Surgical History Additional Past Surgical Histo: dental extraction 3 weeks ago Smoking: Cigarettes Alcohol Use: None Drug Use: None Adult General Chief Complaint Chief Complaint: EYE PROBLEMS HPI HPI Patient is a 38-year-old male who presents with complaint of bilateral eye pain and drainage. He also indicates that eyes are red. He states that symptoms started this morning when he got up out of bed. He states that they had just gotten a new blanket and it had not been washed. He wonders if the blanket and caused irritation to his eyes during the night due to contact. Patient rates pa in as moderate. He denies any change in vision.[] Review of Systems Review of Systems Constitutional: Denies fever or chills [] Eyes: Denies change in visual acuity. Complains of redness and eye pain [] Respiratory: Denies cough or shortness of breath [] Cardiovascular: No additional information not addressed in HPI [] Integument: Denies rash or skin lesions [] Current Medications Current Medications Current Medications Medications (Trade) Dose Ordered Sig/Tommy Start Time Stop Time Status Last Admin Dose Admin Ketorolac Tromethamine (Acular) 1 drop 1X ONCE 09/15/19 16:00 09/15/19 16:01 UNV Neomycin/ Polymyxin/Bacitr/ Hydrocort (Cortisporin Ophth) 1 audelia 1X STAT 09/15/19 15:59 09/15/19 16:00 UNV Allergies Allergies Allergies Coded Allergies Type Severity Reaction Last Updated Verified onion Allergy Severe 11/19/18 Yes mayonnaise Allergy Unknown 12/02/18 Yes Physical Exam Physical Exam Constitutional: Well developed, well nourished, no acute distress, non-toxic appearance. [] Eyes: PERRLA, EOMI, there is scleral injection with mild chemosis noted. [] Cardiovascular: Regular rate and rhythm[] Lungs & Thorax: Bilateral breath sounds clear to auscultation [] Skin: Warm, dry, no erythema, no rash. [] Current Patient Data Vital Signs Vital Signs Date Time Temp Pulse Resp B/P (MAP) Pulse Ox O2 Delivery O2 Flow Rate FiO2 09/15/19 15:54 72 18 99 Room Air EKG EKG [] Radiology/Procedures Radiology/Procedures [] Course & Med Decision Making Course & Med Decision Making Pertinent Labs and Imaging studies reviewed. (See chart for details) [] Dragon Disclaimer Dragon Disclaimer This electronic medical record was generated, in whole or in part, using a voice recognition dictation system. Departure Departure: Impression: Primary Impression: Chemical conjunctivitis of both eyes Disposition: 01 HOME, SELF-CARE Condition: STABLE Referrals: [facility] (PCP) Patient Instructions: Allergic Conjunctivitis, Bacterial Conjunctivitis, Conjunctivitis, Chemical Scripts Tobramycin/Dexamethasone (TOBRADEX EYE DROPS) 5 Ml Drops.susp 1 DROP OU QID for infection, #5 ML Prov: MELY MOORE Jr. DO 09/15/19 MELY MOORE Jr. DO Sep 15, 2019 16:08
[2019-09-15] MEDS ORDERED: TOBR5DRO2 OU (16:15)
[2019-09-15] MEDS ORDERED: KETOROLAC TROMETHAMINE 0.5% OPHTH SOLUTION BOTTLE. OU ONE (16:15)
== END 2019-09-15 16:29 | disposition home or self-care (01) ==
LOC: ER 15:45
DX: H10.213 Acute toxic conjunctivitis, bilateral (principal); F17.210 Nicotine dependence, cigarettes, uncomplicated; Z91.018 Allergy to other foods
CPT/HCPCS: 99283

== ENCOUNTER 2019-10-27 01:16 | Emergency (ER) | payer OTHER ==
[~2019-10-27] VITALS: Ht 175.3 cm; Wt 95.8 kg
[~2019-10-27 01:16] MED LIST changes: -LIDO15SO2 MM; +LIDO20SO10 MM; +TOBR5DRO2 OU
[2019-10-27] MEDS ORDERED: PROCHLORPERAZINE 10 MG/2 ML VIAL. IV ONE (02:15)
[2019-10-27] MEDS ORDERED: diphenhydrAMINE 50 MG/ML VIAL IVP ONE (02:15)
[2019-10-27] MEDS ORDERED: KETOROLAC 30 MG/ML VIAL. IVP ONE (02:15)
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
--- NOTE | 2019-10-27 02:52 | RAD ---
INDICATION: Headache COMPARISON: None. TECHNIQUE: Axial CT images obtained through the head without intravenous contrast. One or more of the following individualized dose reduction techniques were utilized for this examination: 1. Automated exposure control; 2. Adjustment of the mA and/or kV according to patient size; 3. Use of iterative reconstruction technique. FINDINGS: No intracranial hemorrhage. No midline shift. Basal cisterns patent. Ventricles and sulci are unremarkable. No acute osseous abnormality. Orbits and paranasal sinuses unremarkable. There are some calcifications and partially seen left parotid. IMPRESSION: * No acute intracranial hemorrhage. Electronically signed by: Satish Toledo MD (10/27/2019 2:49 AM) [id number]
[2019-10-27 03:05] VITALS: BP 152/93
== END 2019-10-27 03:06 | disposition home or self-care (01) ==
LOC: ER 01:16
DX: R51 Headache (principal); I10 Essential (primary) hypertension; F17.210 Nicotine dependence, cigarettes, uncomplicated
CPT/HCPCS: 70450; 96374; 96375; 99284; J0780; J1200; J1885

== ENCOUNTER 2019-12-16 12:04 | Emergency (ER) | payer OTHER ==
[~2019-12-16] VITALS: Ht 175.3 cm; Wt 95.8 kg
[2019-12-16 12:10] VITALS: BP 147/87
[2019-12-16] MEDS ORDERED: HYDROcodone/APAP 5/325MG 1 TAB TABLET PO ONE (13:00)
[2019-12-16] MEDS ORDERED: HYDR-3165 PO (13:00)
[2019-12-16] MEDS ORDERED: CLIN300C8 PO (13:00)
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
== END 2019-12-16 13:07 | disposition home or self-care (01) ==
LOC: ER 12:04
DX: S02.5XXA Fracture of tooth (traumatic), initial encounter for closed fracture (principal); K04.7 Periapical abscess without sinus; I10 Essential (primary) hypertension; F32.9 Major depressive disorder, single episode, unspecified; F17.210 Nicotine dependence, cigarettes, uncomplicated; Z91.018 Allergy to other foods; X58.XXXA Exposure to other specified factors, initial encounter; Y93.89 Activity, other specified; Y92.89 Other specified places as the place of occurrence of the external cause; Y99.8 Other external cause status
CPT/HCPCS: 99283

== ENCOUNTER 2020-05-06 21:20 | Emergency (ER) | payer OTHER ==
[~2020-05-06] VITALS: Ht 175.3 cm; Wt 89.4 kg
[2020-05-06 21:20] VITALS: BP 168/103
[~2020-05-06 21:20] MED LIST changes: +CLIN300C8 PO
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
[2020-05-06 22:53] LABS: BACTERIA,URINE 0 /HPF (0-FEW); BILIRUBIN,URINE NEG (NEG); CLARITY,URINE CLEAR; COLOR,URINE YELLOW; GLUCOSE,URINE NEG (NEG); NITRITE,URINE NEG (NEG); SQUAMOUS EPITHELIAL CELL,UR MOD /LPF
[2020-05-06] MEDS ORDERED: CEPH-264 PO (23:03)
[2020-05-06] MEDS ORDERED: ONDANSETRON ODT 4 MG TAB.RAPDIS PO ONE (23:30)
[2020-05-06] MEDS ORDERED: cefTRIAXone IM 1 GM VIAL IM ONE (23:30)
[2020-05-06] MEDS ORDERED: AZITHROMYCIN 250 MG TABLET. PO ONE (23:30)
[2020-05-06] MEDS ORDERED: metroNIDAZOLE 500 MG TABLET PO ONE (23:30)
== END 2020-05-06 23:43 | disposition home or self-care (01) ==
LOC: ER 21:20
DX: N39.0 Urinary tract infection, site not specified (principal); N34.2 Other urethritis; F32.9 Major depressive disorder, single episode, unspecified; I10 Essential (primary) hypertension; F17.210 Nicotine dependence, cigarettes, uncomplicated; Z87.440 Personal history of urinary (tract) infections; Z91.018 Allergy to other foods
CPT/HCPCS: 36415; 81001; 87491; 87591; 96372; 99284; J0456; J0696; Q0162

== ENCOUNTER 2020-11-13 00:27 | Emergency (ER) | payer OTHER ==
[~2020-11-13] VITALS: Ht 175.3 cm; Wt 89.4 kg
[~2020-11-13 00:27] MED LIST changes: -CLIN300C8 PO; +CLIN300C9 PO
[2020-11-13 00:35] VITALS: BP 138/48
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
--- NOTE | 2020-11-13 03:31 | RAD ---
EXAM: CHEST 2 VIEWS. HISTORY: Chest pain. COMPARISON: 08/07/2018. FINDINGS: Frontal and lateral views of the chest are obtained. There are no confluent infiltrates. There is no pneumothorax or pleural effusion. The heart is not en larged. IMPRESSION: 1. No confluent infiltrates. Electronically signed by: Tacho Yeung MD (11/13/2020 3:29 AM) [facility]
--- NOTE | 2020-11-13 04:22 | RAD ---
EXAM: 1. CT HEAD WITHOUT CONTRAST. 2. CT CERVICAL SPINE WITHOUT CONTRAST. HISTORY: Headache,. TECHNIQUE: Computed tomography of the head and cervical spine was performed without intravenous contr ast. One or more of the following individualized dose reduction techniques were utilized for this exa mination: 1. Automated exposure control. 2. Adjustment of the mA and/or kV according to patient size. 3. Use of iterative reconstruction technique. COMPARISON: 10/27/2019. FINDINGS: There is no intracranial hemorrhage. Jurado-white differentiation is preserved. The ventricl es are normal in size and position. The visualized paranasal sinuses appear clear. The orbits are unremarkable. The temporal bones are un remarkable. The calvarium reveals no suspicious lesions. Correlate for a laceration along the frontal scalp. A mild cervical dextrocurvature may be positional. The craniocervical junction is unremarkable. No fr actures are identified. Degenerative disc disease is mild throughout. There is relatively prominent a nterior endplate spurring for patient age. There is no prevertebral soft tissue swelling. At C2-3, there is a small central disc protrusion. There is no stenosis. At C3-4, there is a small posterior disc-osteophyte complex. The pedicles are congenitally short. Min imal anteroposterior central canal diameter is 7 mm. Uncovertebral osteoarthritis is mild bilaterally . Left neural foraminal stenosis is mild. At C4-5, there is a moderate posterior disc-osteophyte complex. Minimal anteroposterior central canal diameter is 7 mm. Uncovertebral osteoarthritis is moderate on the left. Left neural foraminal stenos is is mild. At C5-6, there is a moderate posterior disc-osteophyte complex, likely with a small central disc prot rusion. Minimal anteroposterior central canal diameter is 6 mm. Uncovertebral osteoarthritis is moder ate bilaterally. Neural foraminal stenosis is mild on the right and moderate on the left. At C6-7, there is a small posterior disc bulge. Small sialoliths are noted throughout the left parotid gland, suggesting chronic sialoadenitis. IMPRESSION: 1. No acute intracranial findings. Frontal scalp laceration. 2. No cervical fracture or malalignment. 3. Moderate degenerative changes for patient age combined with congenitally short pedicles to result in diffuse moderate to severe central canal stenosis. Minimal anteroposterior central canal diameter is as well as 6 mm at C5-6, indicating moderate to severe stenosis. MRI could further assess stenosis if there is persistent concern. 4. Correlate for chronic sialoadenitis of the left parotid gland. Electronically signed by: Tacho Yeung MD (11/13/2020 4:20 AM) [facility]
== END 2020-11-13 04:35 | disposition home or self-care (01) ==
LOC: ER 00:27
DX: G89.29 Other chronic pain (principal); R07.89 Other chest pain; G40.909 Epilepsy, unspecified, not intractable, without status epilepticus; F07.81 Postconcussional syndrome; R51.9 Headache, unspecified; M19.90 Unspecified osteoarthritis, unspecified site; F32.9 Major depressive disorder, single episode, unspecified; I10 Essential (primary) hypertension; F17.210 Nicotine dependence, cigarettes, uncomplicated; Z98.890 Other specified postprocedural states; Z88.8 Allergy status to other drugs, medicaments and biological substances; Z91.018 Allergy to other foods
CPT/HCPCS: 70450; 71046; 72125; 99285

== ENCOUNTER 2021-01-24 14:25 | Emergency (ER) | payer OTHER ==
[~2021-01-24] VITALS: Ht 175.3 cm; Wt 89.4 kg
[2021-01-24 14:25] VITALS: BP 140/84
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
[2021-01-24] MEDS ORDERED: HYDROcodone/APAP 5/325MG 1 TAB TABLET PO ONE (15:30)
--- NOTE | 2021-01-24 15:35 | RAD ---
Exam performed: Left wrist and hand 3 views. Indication: Patient hand was caught between the washer. Complaining of pain Date of Service: 01/23/2021 Comparison: None available Findings: PA, oblique lateral radiographs of the hand and wrist reveal the osseous structures to be intact and well aligned. The joint spaces are well-preserved. The articular margins are smooth. No soft tissue s welling or foreign bodies detected. Impression: No acute abnormality seen in the hand or wrist Electronically signed by: Jaz Cheng MD (01/24/2021 3:32 PM) [facility]
== END 2021-01-24 15:53 | disposition home or self-care (01) ==
LOC: ER 14:25
DX: M25.532 Pain in left wrist (principal); W22.8XXA Striking against or struck by other objects, initial encounter; Y93.89 Activity, other specified; Y92.89 Other specified places as the place of occurrence of the external cause; Y99.8 Other external cause status
CPT/HCPCS: 73110; 73130; 99284-25

== ENCOUNTER 2021-03-02 17:58 | Emergency (ER) | payer OTHER ==
[~2021-03-02] VITALS: Ht 175.3 cm; Wt 93.2 kg
[2021-03-02] MEDS ORDERED: ASPIRIN 325 MG TABLET PO ONE (18:45)
[2021-03-02] MEDS ORDERED: IV NORMAL SALINE 1,000ML 1,000 ML IV ONE (18:45)
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
--- NOTE | 2021-03-02 19:09 | EKG ---
[facility] ED [facility] [place] [id number] Test Date: 2021-03-02 Test Time: 18:28:41 Pat Name: NASIR GODOY Department: Room: Gender: M Dragger: JANEL : 1980 Requested By: SUSIE PAYAN Order Number: [id number] Reading MD: Measurements Intervals Brogan Rate: 70 P: 64 WI: 146 QRS: 20 QRSD: 98 T: -8 QT: 396 QTc: 430 Interpretive Statements SINUS RHYTHM NO SPECIFIC ECG ABNORMALITIES RI6.02 No previous ECG available for comparison
--- NOTE | 2021-03-02 19:17 | RAD ---
Single view chest dated 03/02/2021 7:15 PM: COMPARISON: None Clinical Indication: Chest pain. Findings: Single upright portable exam of the chest was performed. Heart size and mediastinal contours are with in normal limits. Lungs are clear. No consolidation or pleural effusion. No pneumothorax. IMPRESSION: No acute radiographic abnormality. Electronically signed by: Wilmer Yates MD (03/02/2021 7:15 PM) [facility]
[2021-03-02 20:09] LABS: BASO # 0.1 x10^3/uL (0.0-0.2); BASO % 1 % (0-3); EOS # 0.2 x10^3/uL (0.0-0.7); EOS % 3 % (0-3); HEMATOCRIT 39.7 % (39.0-53.0); HEMOGLOBIN 13.2 g/dL (13.0-17.5); LYMPH % 34 % (24-48); MEAN CORPUSCULAR HEMOGLOBIN 29 pg (25-35); MEAN CORPUSCULAR HGB CONC 33 g/dL (31-37); MEAN CORPUSCULAR VOLUME 86 fL (79-100); MONO # 0.7 x10^3/uL (0.0-1.1); MONO % 12 % (0-9); NEUT # 3.1 x10^3uL (1.8-7.7); NEUT % 51 % (31-73); PLATELET COUNT 176 x10^3/uL (140-400); RED BLOOD COUNT 4.62 x10^6/uL (4.30-5.70); RED CELL DISTRIBUTION WIDTH 13.7 % (11.5-14.5)
[2021-03-02 20:33] LABS: ALBUMIN 3.7 g/dL (3.4-5.0); ALBUMIN/GLOBULIN RATIO 1.2 (1.0-1.7); CALCIUM 8.7 mg/dL (8.5-10.1); CREATININE 1.2 mg/dL (0.7-1.3); GFR 80.3; POTASSIUM 3.7 mmol/L (3.5-5.1); TOTAL BILIRUBIN 0.2 mg/dL (0.2-1.0); TOTAL PROTEIN 6.9 g/dL (6.4-8.2)
[2021-03-02 21:25] VITALS: BP 152/96
== END 2021-03-02 21:50 | disposition home or self-care (01) ==
LOC: ER 17:58
DX: R07.2 Precordial pain (principal); M19.90 Unspecified osteoarthritis, unspecified site; F31.9 Bipolar disorder, unspecified; I10 Essential (primary) hypertension; F20.9 Schizophrenia, unspecified; F17.210 Nicotine dependence, cigarettes, uncomplicated; Z87.440 Personal history of urinary (tract) infections; Z91.018 Allergy to other foods
CPT/HCPCS: 36415; 71045; 80053; 82553; 83690; 83735; 83880; 84484; 85025; 93005; 96360; 99285; J7030; 51702; 96365; 99284-25

== ENCOUNTER 2021-04-29 07:47 | Emergency (ER) | payer OTHER ==
[~2021-04-29] VITALS: Ht 175.3 cm; Wt 93.2 kg
[~2021-04-29 07:47] MED LIST changes: -QUET25TA PO; +QUET25TA3 PO
[2021-04-29] MEDS ORDERED: IV NORMAL SALINE 1,000ML 1,000 ML IV ONE (08:15)
[2021-04-29] MEDS ORDERED: METOCLOPRAMIDE HCL 10 MG/2 ML VIAL. IVP ONE (08:30)
[2021-04-29] MEDS ORDERED: diphenhydrAMINE 50 MG/ML VIAL IVP ONE (08:30)
[2021-04-29] MEDS ORDERED: KETOROLAC 30 MG/ML VIAL. IVP ONE (08:30)
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
[2021-04-29 08:38] LABS: BASO # 0.1 x10^3/uL (0.0-0.2); BASO % 1 % (0-3); EOS # 0.2 x10^3/uL (0.0-0.7); EOS % 2 % (0-3); HEMATOCRIT 41.8 % (39.0-53.0); HEMOGLOBIN 13.9 g/dL (13.0-17.5); LYMPH # 2.5 x10^3/uL (1.0-4.8); LYMPH % 26 % (24-48); MEAN CORPUSCULAR HEMOGLOBIN 29 pg (25-35); MEAN CORPUSCULAR HGB CONC 33 g/dL (31-37); MEAN CORPUSCULAR VOLUME 86 fL (79-100); MONO # 1.2 x10^3/uL (0.0-1.1); MONO % 13 % (0-9); NEUT # 5.6 x10^3uL (1.8-7.7); NEUT % 59 % (31-73); PLATELET COUNT 186 x10^3/uL (140-400); RED BLOOD COUNT 4.88 x10^6/uL (4.30-5.70); RED CELL DISTRIBUTION WIDTH 13.7 % (11.5-14.5); WHITE BLOOD COUNT 9.6 x10^3/uL (4.0-11.0)
--- NOTE | 2021-04-29 08:40 | RAD ---
CT HEAD/BRAIN WO History: Headache for a month. Comparison: 11/13/2020. Technique: Noncontrast CT imaging was performed of the head. Findings: No intracranial hemorrhage. No mass effect. No hydrocephalus. No evidence of territorial infarction. Incidental cavum septum pellucidum. Imaged orbits are unremarkable. Trace opacity in the left maxillary sinus. Punctate calcifications th roughout the left parotid gland. The scalp and calvarium are unremarkable. Impression: 1. No acute intracranial abnormality. 2. Incidental punctate left parotid calcifications. ----- Exposure: One or more of the following individualized dose reduction techniques were utilized for thi s examination: 1. Automated exposure control 2. Adjustment of the mA and/or kV according to patient size 3. Use of iterative reconstruction technique. Electronically signed by: Brenden Guthrie MD (04/29/2021 8:37 AM) [id number]
[2021-04-29 08:44] LABS: CALCIUM 8.6 mg/dL (8.5-10.1); CREATININE 1.2 mg/dL (0.7-1.3); GFR 80.3; POTASSIUM 3.8 mmol/L (3.5-5.1)
[2021-04-29 08:48] VITALS: BP 130/84
[2021-04-29 08:50] LABS: ALBUMIN 3.7 g/dL (3.4-5.0); ALBUMIN/GLOBULIN RATIO 1.1 (1.0-1.7); TOTAL BILIRUBIN 0.3 mg/dL (0.2-1.0); TOTAL PROTEIN 7.1 g/dL (6.4-8.2)
== END 2021-04-29 09:24 | disposition home or self-care (01) ==
LOC: ER 07:47
DX: R51.9 Headache, unspecified (principal); G47.30 Sleep apnea, unspecified; M19.90 Unspecified osteoarthritis, unspecified site; F31.9 Bipolar disorder, unspecified; I10 Essential (primary) hypertension; F20.9 Schizophrenia, unspecified; F17.210 Nicotine dependence, cigarettes, uncomplicated; Z87.440 Personal history of urinary (tract) infections; Z91.018 Allergy to other foods
CPT/HCPCS: 36415; 70450; 80053; 85025; 99284

== ENCOUNTER 2021-12-02 22:53 | Emergency (ER) | payer OTHER ==
[~2021-12-02] VITALS: Ht 175.3 cm; Wt 98.4 kg
[~2021-12-02 22:53] MED LIST changes: +CLIN-95 PO; -CLIN300C9 PO; -CYCL-331 PO; +CYCL10TA19 PO
[2021-12-02 23:20] VITALS: BP 162/103
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
[2021-12-02] MEDS ORDERED: CONTRAST GIVEN. MC PRN (23:45)
[2021-12-02] MEDS ORDERED: IOHEXOL 300 MG/ML 75 ML VIAL. IV ONE (23:45)
[2021-12-02 23:59] LABS: CLARITY,URINE CLEAR; COLOR,URINE YELLOW; GLUCOSE,URINE NEG (NEG); NITRITE,URINE NEG (NEG)
[2021-12-03] LABS: BACTERIA,URINE MANY /HPF (0-FEW); SQUAMOUS EPITHELIAL CELL,UR MOD /LPF
--- NOTE | 2021-12-03 00:34 | RAD ---
CLINICAL HISTORY: Swallowed right testicle COMPARISON: None available. TECHNIQUE: Ultrasound images of the scrotum was performed with mcdermott-scale and color doppler. FINDINGS: The right testis measures 2.5 x 3.7 x 2.0 cm. The left testis measures 2.5 x 4.0 x 2.0 cm. There is no intratesticular mass. Mild symmetric bilateral testicular microlithiasis. Testicular vasc ularity is symmetric and within normal limits. The epididymis is normal in appearance bilaterally. Small bilateral hydrocele. No varicocele. IMPRESSION: No acute testicular findings. Small bilateral hydrocele. Electronically signed by: Brenden Guthrie MD (12/03/2021 12:32 AM) [facility]
--- NOTE | 2021-12-03 00:59 | RAD ---
CT ABDOMEN+PELVIS W History: Right testicle and inguinal pain. Possible hernia. Comparison: Chest ultrasound 12/02/2021. CT abdomen and pelvis 02/04/2019. Technique: CT of the abdomen and pelvis with intravenous contrast. Findings: The lung bases are clear. Liver is normal. The gallbladder is decompressed. The pancreas, spleen, adr enal glands, and kidneys are within normal limits. The bladder and prostate are normal. The stomach is well distended. No focal abnormality. The small bowel is within normal limits. Normal appendix. Colon is within normal limits. There is no free intraperitoneal air or fluid. Normal vascul ature. No adenopathy. Soft tissues are unremarkable. There is no inguinal or femoral hernia identified. Osseous structures are normal. Impression: 1. No acute findings in the abdomen and pelvis. No evidence of inguinal hernia. ------ Exposure: One or more of the following individualized dose reduction techniques were utilized for thi s examination: 1. Automated exposure control 2. Adjustment of the mA and/or kV according to patient size 3. Use of iterative reconstruction technique. Electronically signed by: Brenden Guthrie MD (12/03/2021 12:57 AM) [facility]
== END 2021-12-03 01:25 | disposition home or self-care (01) ==
LOC: ER 22:53
DX: N50.811 Right testicular pain (principal); R10.31 Right lower quadrant pain; F41.9 Anxiety disorder, unspecified; F31.9 Bipolar disorder, unspecified; I10 Essential (primary) hypertension; F17.210 Nicotine dependence, cigarettes, uncomplicated; Z87.440 Personal history of urinary (tract) infections; Z91.018 Allergy to other foods
CPT/HCPCS: 74177; 76870; 81001; 87086; 99285; Q9967

== ENCOUNTER 2021-12-23 18:04 | Emergency (ER) | payer OTHER ==
[~2021-12-23] VITALS: Ht 175.3 cm; Wt 104.0 kg
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
== END 2021-12-23 18:54 | disposition home or self-care (01) ==
LOC: ER 18:04
DX: M77.11 Lateral epicondylitis, right elbow (principal); M19.90 Unspecified osteoarthritis, unspecified site; F31.9 Bipolar disorder, unspecified; I10 Essential (primary) hypertension; F20.9 Schizophrenia, unspecified; F17.210 Nicotine dependence, cigarettes, uncomplicated; Z87.440 Personal history of urinary (tract) infections; Z91.018 Allergy to other foods
CPT/HCPCS: 99282; 99283